=== PATIENT | male | born 1980 | race Caucasian/White ===

== ENCOUNTER → 2020-05-15 11:53 | Outpatient (BNVA) | payer MEDICARE, MEDICAID, SELFPAY | PROVIDERS: PCP Physician Assistant; Referring Provider Physician Assistant; Visit Provider Orthopaedic Surgery | DX: M22.2X1 Patellofemoral disorders, right knee (principal); M22.2X2 Patellofemoral disorders, left knee | CPT/HCPCS: 20610; 99213; 99214; J1040 ==

== ENCOUNTER → 2020-10-16 11:05 | Outpatient (BNVA) | payer MEDICARE, MEDICAID, SELFPAY | PROVIDERS: Visit Provider Orthopaedic Surgery | DX: M22.2X1 Patellofemoral disorders, right knee (principal); M22.2X2 Patellofemoral disorders, left knee | CPT/HCPCS: 20610; 99212; J1040 ==

== ENCOUNTER → 2021-02-05 11:06 | Outpatient (BNVA) | payer MEDICARE, MEDICAID, SELFPAY | PROVIDERS: PCP Physician Assistant; Visit Provider Orthopaedic Surgery | DX: M22.2X2 Patellofemoral disorders, left knee (principal); M22.2X1 Patellofemoral disorders, right knee | CPT/HCPCS: 20610; 99212; J1040 ==

== ENCOUNTER → 2021-03-26 08:31 | Outpatient (BNVA) | payer MEDICARE, MEDICAID, SELFPAY | PROVIDERS: Visit Provider Orthopaedic Surgery | DX: M17.0 Bilateral primary osteoarthritis of knee (principal); Z88.8 Allergy status to other drugs, medicaments and biological substances | CPT/HCPCS: 20610; 99212; J7318 ==

== ENCOUNTER → 2021-12-22 13:09 | Outpatient (BNVA) | payer MEDICARE, MEDICAID, SELFPAY | PROVIDERS: Visit Provider Physician Assistant | DX: M17.0 Bilateral primary osteoarthritis of knee (principal); M22.2X1 Patellofemoral disorders, right knee; M22.2X2 Patellofemoral disorders, left knee | CPT/HCPCS: 20610; 99212; J1040 ==

== ENCOUNTER → 2022-05-16 14:53 | Outpatient (BNVA) | payer MEDICARE, MEDICAID, SELFPAY | PROVIDERS: PCP Family Medicine; Visit Provider Physician Assistant | DX: M22.2X1 Patellofemoral disorders, right knee (principal); M22.2X2 Patellofemoral disorders, left knee | CPT/HCPCS: 20610; 99212; J1040 ==

== ENCOUNTER → 2022-06-29 14:04 | Outpatient (BNVA) | payer MEDICARE, MEDICAID, SELFPAY | PROVIDERS: PCP Family Medicine; Visit Provider Physician Assistant | DX: M25.561 Pain in right knee (principal); M25.562 Pain in left knee; M17.0 Bilateral primary osteoarthritis of knee | CPT/HCPCS: 20610; J7318 ==

== ENCOUNTER → 2022-08-17 09:24 | Outpatient (BNVA) | payer MEDICARE, MEDICAID, SELFPAY | PROVIDERS: PCP Family Medicine; Visit Provider Physician Assistant | DX: M17.0 Bilateral primary osteoarthritis of knee (principal) | CPT/HCPCS: 20610; 99212; J1040 ==

== ENCOUNTER → 2022-11-16 13:43 | Outpatient (BNVA) | payer MEDICARE, MEDICAID, SELFPAY | PROVIDERS: PCP Family Medicine; Visit Provider Physician Assistant | DX: M17.0 Bilateral primary osteoarthritis of knee (principal) | CPT/HCPCS: 20610; 99212; J1040 ==

== ENCOUNTER 2023-02-15 13:54 | Outpatient (AMB) | payer MEDICARE, MEDICAID, SELFPAY ==
--- NOTE | 2023-02-15 13:59 | A.OFFVIS_ITS ---
Intake Vital Signs 02/15/23 14:01 Height 6 ft Weight 360 lb BMI 48.8 Intake Visit Reasons: OV-B/L knee injection, last inj 11/16/22 Intake Note: Braxton is a 41 year old male who presents today for b/l knee injection, last inj 11/16/22. Patient reports last injection provided relief until until a few weeks ago. States he would like to repeat injections. Allergies acetaminophen [From TYLENOL] Allergy (Unknown, Verified 02/15/23 14:00) N/V codeine [CODEINE] Allergy (Unknown, Verified 02/15/23 14:00) NAUSEA VOMITING Codeine Phosphate Allergy (Unknown, Uncoded 02/15/23 14:00) onknown Diclofenac Allergy (Unknown, Uncoded 02/15/23 14:00) rash Codeine Sulfate Adverse Reaction (Unknown, Uncoded 02/15/23 14:00) GI upset HPI OV-B/L knee injection, last inj 11/16/22 HPI Details 42-year-old male who returns to the office today for a follow-up of bilateral knee pain. He had his last injection on 11/16/22 which provided him relief until a few weeks ago. he would like to repeat the injections. [facility] Social History Alcohol intake: never Current occupational status: unemployed Current occupation: Right Handed Review of Systems Const All systems reviewed & are unremarkable except as noted in HPI and below Physical Exam Vital Signs: BMI result Body Mass Index 48.8 Extrem Other: Left knee skin intact. No erythema or joint effusion. Full ROM with crepitus. Calf supple non tender. Right knee skin intact, no erythema or effusion. Full ROM with crepitus. Calf supple non tender, Office Procedures Joint Injection/Drain Joint Injection/Drain Primary Site: right knee Secondary Site: left knee Prep: site was prepped using aseptic technique, ethochloride spray was applied and injection warnings given Injected: 80 mg of, DepoMedrol, with 8 mL of, 1% plain lidocaine and in the joint Approach Used: anterolateral Procedure: The patient tolerated the procedure well and there was some relief with the local anesthesia Coding 21356 - Glenohumeral/Tronchanteric Bursa/Intraarticular Procedure code (CPT) selection complete Results Reviewed Results Reviewed: 02/15/23 14:01 Lidocaine HCl 2 % MPF [Xylocaine 2 % MPF] 5 ml .ROUTE .STK-MED ONE methylPREDNISolone acetate [DEPO-MedroL] 80 mg .ROUTE .STK-MED ONE Assessment & Plan Assessment & Plan (1) Primary osteoarthritis of knees, bilateral: Code(s): M17.0 - Bilateral primary osteoarthritis of knee Plan We discussed options today which include steroid injection. They did consent to move forward with the bilateral knee injection, which was tolerated well. I recommended rest, ice and elevation and OTC anti-inflammatories PRN for discomfort. If symptoms persist or worsens over the next 6-8 weeks, patient will contact the office, otherwise follow-up as needed. Patient Instructions: Scribed for Stas Roberts PA-C, by Pedro Luis Alvares medical physiologist, on 02/15/2023 at 1:45 PM EST. I, Stas Roberts PA-C, have personally reviewed and agree with the information entered by the scribe. Coding Level of Care Code Est Pt Level 3 (73459) Diagnoses Primary osteoarthritis of knees, bilateral M17.0 CPT Codes Coding - Joint 7: 93915 - Glenohumeral/Tronchanteric Bursa/Intraarticular ([id number])
[2023-02-15 14:01] VITALS: BMI 48.8
== END 2023-02-15 14:20 | disposition home or self-care (01) ==
PROVIDERS: Visit Provider Physician Assistant
DX: M17.0 Bilateral primary osteoarthritis of knee (principal)
CPT/HCPCS: 20610; 99213

== ENCOUNTER → 2023-02-15 13:54 | Outpatient (BNVA) | payer MEDICARE, MEDICAID, SELFPAY | PROVIDERS: Visit Provider Physician Assistant | DX: M17.0 Bilateral primary osteoarthritis of knee (principal) | CPT/HCPCS: 20610; 99212; J1040 ==

== ENCOUNTER 2023-05-18 13:54 | Outpatient (AMB) | payer MEDICARE, MEDICAID, SELFPAY ==
--- NOTE | 2023-05-18 14:01 | A.OFFVIS_ITS ---
Intake Vital Signs 05/18/23 14:02 Height 6 ft Weight 360 lb BMI 48.8 Intake Visit Reasons: OV-B/L knee injection-last injection 02/15/23 Intake Note: Braxton a 42 year old male presents today for a follow up of Allergies acetaminophen [From TYLENOL] Allergy (Unknown, Verified 02/15/23 14:00) N/V codeine [CODEINE] Allergy (Unknown, Verified 02/15/23 14:00) NAUSEA VOMITING Codeine Phosphate Allergy (Unknown, Uncoded 02/15/23 14:00) onknown Diclofenac Allergy (Unknown, Uncoded 02/15/23 14:00) rash Codeine Sulfate Adverse Reaction (Unknown, Uncoded 02/15/23 14:00) GI upset HPI OV-B/L knee injection-last injection 02/15/23 HPI Details 42-year-old male who returns to the [facility] today for bilateral knee injection. He had his last injection on 02/15/23. [facility] Social History Alcohol intake: never Current occupational status: unemployed Current occupation: Right Handed Review of Systems Const All systems reviewed & are unremarkable except as noted in HPI and below Physical Exam Vital Signs: BMI result Body Mass Index 48.8 Extrem Other: Left knee skin intact. No erythema or joint effusion. Full ROM with crepitus. Calf supple non tender. Right knee skin intact, no erythema or effusion. Full ROM with crepitus. Calf supple non tender, Office Procedures Joint Injection/Drain Joint Injection/Drain Primary Site: right knee Secondary Site: left knee Prep: site was prepped using aseptic technique, ethochloride spray was applied and injection warnings given Injected: 80 mg of, DepoMedrol, with 8 mL of, 1% plain lidocaine and in the joint Approach Used: anterolateral Procedure: The patient tolerated the procedure well and there was some relief with the local anesthesia Coding 80791 - Glenohumeral/Tronchanteric Bursa/Intraarticular Procedure code (CPT) selection complete Results Reviewed Results Reviewed: 05/18/23 13:59 Lidocaine HCl 2 % MPF [Xylocaine 2 % MPF] 5 ml .ROUTE .STK-MED ONE methylPREDNISolone acetate [DEPO-MedroL] 80 mg .ROUTE .STK-MED ONE Assessment & Plan Assessment & Plan (1) Primary osteoarthritis of knees, bilateral: Code(s): M17.0 - Bilateral primary osteoarthritis of knee Plan We discussed options today which include steroid injection. They did consent to move forward with the bilateral knee injection, which was tolerated well. I recommended rest, ice and elevation and OTC anti-inflammatories PRN for discomfort. If symptoms persist or worsens over the next 6-8 weeks, patient will contact the office, otherwise follow-up as needed. Patient Instructions: Scribed for Stas Roberts PA-C, by Pedro Luis Alvares medical coding technician, on 05/18/2023 at 1:45 PM EST. I, Stas Roberts PA-C, have personally reviewed and agree with the information entered by the scribe. Coding Level of Care Code Est Pt Level 3 (62340) Diagnoses Primary osteoarthritis of knees, bilateral M17.0 CPT Codes Coding - Joint 7: 58414 - Glenohumeral/Tronchanteric Bursa/Intraarticular ([id number])
[2023-05-18 14:02] VITALS: BMI 48.8
== END 2023-05-18 14:21 | disposition home or self-care (01) ==
PROVIDERS: PCP Family Medicine; Visit Provider Physician Assistant
DX: M17.0 Bilateral primary osteoarthritis of knee (principal)
CPT/HCPCS: 20610

== ENCOUNTER → 2023-05-18 13:54 | Outpatient (BNVA) | payer MEDICARE, OTHER, SELFPAY | PROVIDERS: PCP Family Medicine; Visit Provider Physician Assistant | DX: M17.0 Bilateral primary osteoarthritis of knee (principal) | CPT/HCPCS: 20610; J1040 ==

== ENCOUNTER 2023-08-21 14:48 | Outpatient (AMB) | payer OTHER, MEDICAID, SELFPAY ==
--- NOTE | 2023-08-21 14:49 | A.OFFVIS_ITS ---
Intake Vital Signs 08/21/23 14:53 Height 6 ft Weight 360 lb BMI 48.8 Intake Visit Reasons: OV- B/L knee Durolane injection Intake Note: Braxton a 42 year old male presents today for bilateral knee Durolane injections. Patient reports last cortisone injections on 05/18/23 helped until recently, stating the past 2 weeks his pain has been increasing. Allergies acetaminophen [From TYLENOL] Allergy (Unknown, Verified 08/21/23 14:54) N/V codeine [CODEINE] Allergy (Unknown, Verified 08/21/23 14:54) NAUSEA VOMITING Codeine Phosphate Allergy (Unknown, Uncoded 08/21/23 14:54) onknown Diclofenac Allergy (Unknown, Uncoded 08/21/23 14:54) rash Codeine Sulfate Adverse Reaction (Unknown, Uncoded 08/21/23 14:54) GI upset Medication List - Last Reconciled 08/21/23 by Stas Roberts PA-C cyclobenzaprine 10 mg PO TID PRN glatiramer mg subcut hydrocodone-acetaminophen 10-325 mg 1 - 2 tabs PO TID PRN lisinopril 10 mg PO DAILY meloxicam 15 mg PO DAILY 30 days HPI OV- B/L knee Durolane injection HPI Details 42-year-old male who returns to the [facility] today for bilateral knee Durolane injection. He had his last cortisone injections on 05/18/23 which provided him relief until recently. He currently states he has worsening pain in her bilateral knees for the past 2 weeks. [facility] Social History Alcohol intake: never Current occupational status: unemployed Current occupation: Right Handed Review of Systems Const All systems reviewed & are unremarkable except as noted in HPI and below Physical Exam Vital Signs: BMI result Body Mass Index 48.8 Extrem Other: Left knee skin intact. No erythema or joint effusion. Full ROM with crepitus. Calf supple non tender. Right knee skin intact, no erythema or effusion. Full ROM with crepitus. Calf supple non tender, Office Procedures Joint Injection/Drain Joint Injection/Drain Details: bilat durolane Primary Site: right knee Secondary Site: left knee Prep: site was prepped using aseptic technique, ethochloride spray was applied and injection warnings given Injected: 80 mg of, with 8 mL of, 1% plain lidocaine and in the joint Approach Used: anterolateral Procedure: The patient tolerated the procedure well and there was some relief with the local anesthesia Coding 67433 - Glenohumeral/Tronchanteric Bursa/Intraarticular Procedure code (CPT) selection complete Assessment & Plan Assessment & Plan (1) Primary osteoarthritis of knees, bilateral: Code(s): M17.0 - Bilateral primary osteoarthritis of knee Plan We discussed options today which include steroid and Durolane injection. They did consent to move forward with the bilateral knee durolane and steroid injection, which was tolerated well. I recommended rest, ice and elevation and OTC anti-inflammatories PRN for discomfort. If symptoms persist or worsens over the next 6-8 weeks, patient will contact the office, otherwise follow-up as needed. Patient Instructions: Scribed for Stas Roberts PA-C, by Pedro Luis Alvares medical grade shoemaker, on 08/21/2023 at 3:00 PM EST. I, Stas Roberts PA-C, have personally reviewed and agree with the information entered by the scribe. Coding Level of Care Code Est Pt Level 3 (43478) Diagnoses Primary osteoarthritis of knees, bilateral M17.0 CPT Codes Coding - Joint 7: 52001 - Glenohumeral/Tronchanteric Bursa/Intraarticular ([id number])
[2023-08-21 14:53] VITALS: BMI 48.8
== END 2023-08-21 15:09 | disposition home or self-care (01) ==
PROVIDERS: PCP Family Medicine; Visit Provider Physician Assistant
DX: M17.0 Bilateral primary osteoarthritis of knee (principal)
CPT/HCPCS: 20610

== ENCOUNTER → 2023-08-21 14:48 | Outpatient (BNVA) | payer OTHER, MEDICAID, SELFPAY | PROVIDERS: PCP Family Medicine; Visit Provider Physician Assistant | DX: M17.0 Bilateral primary osteoarthritis of knee (principal) | CPT/HCPCS: 20610; J1040; J7318 ==

== ENCOUNTER 2023-11-23 13:58 | Outpatient (AMB) | payer OTHER, MEDICAID, SELFPAY ==
--- NOTE | 2023-11-23 14:00 | MHC.OFFVIS ---
Intake Visit Reasons: INJ-OV- B/L knee cortisone inject. Intake Note: Braxton a 43 year old male presents today for a follow up of bilateral knee, last gel and coritsone injection on 08/21/23. Patient reports last injections helped until the past couple of weeks. He is requesting to repeat cortisone injections. Allergies acetaminophen [From TYLENOL] Allergy (Unknown, Verified 11/23/23 14:32) N/V codeine [CODEINE] Allergy (Unknown, Verified 11/23/23 14:32) NAUSEA VOMITING Codeine Phosphate Allergy (Unknown, Uncoded 11/23/23 14:32) onknown Diclofenac Allergy (Unknown, Uncoded 11/23/23 14:32) rash Codeine Sulfate Adverse Reaction (Unknown, Uncoded 11/23/23 14:32) GI upset HPI HPI INJ-OV- B/L knee cortisone inject.: Details: 43-year-old male who returns to the office today for bilateral knee cortisone injection. He had bilateral knee Durolane injection on 08/21/23. He would like to have a cortisone injection today. [facility] Social History Alcohol intake: never Current occupational status: unemployed Current occupation: Right Handed Review of Systems Const All systems reviewed & are unremarkable except as noted in HPI and below Physical Exam Extrem Other: Bilateral knee: Skin intact, no erythema or joint effusion. Tenderness along the medial and lateral joint line. Full ROM with crepitus. Negative Kim?s. No ligamentous laxity. NVI. Office Procedures Joint Injection/Drain Joint Injection/Drain Primary Site: right knee Secondary Site: left knee Prep: site was prepped using aseptic technique, ethochloride spray was applied and injection warnings given Injected: 80 mg of, DepoMedrol, with 8 mL of, 1% plain lidocaine and in the joint Approach Used: anterolateral Procedure: The patient tolerated the procedure well and there was some relief with the local anesthesia Coding 71739 - Glenohumeral/Tronchanteric Bursa/Intraarticular Procedure code (CPT) selection complete Assessment & Plan Assessment & Plan (1) Primary osteoarthritis of knees, bilateral: Code(s): M17.0 - Bilateral primary osteoarthritis of knee Category: Medical Plan We discussed options today which include steroid injection. They did consent to move forward with the bilateral knee injection, which was tolerated well. I recommended rest, ice and elevation and OTC anti-inflammatories PRN for discomfort. If symptoms persist or worsens over the next 6-8 weeks, patient will contact the office, otherwise follow-up as needed. Patient Instructions: Scribed for Stas Roberts PA-C, by Pedro Luis Alvares medical office technician, on 11/23/2023 at 1:45 PM EST. Stas Sandoval PA-C, have personally reviewed and agree with the information entered by the scribe. Coding Level of Care Code Est Pt Level 3 (32123) Diagnoses Primary osteoarthritis of knees, bilateral M17.0 CPT Codes Coding - Joint 7: 47987 - Glenohumeral/Tronchanteric Bursa/Intraarticular ([id number])
== END 2023-11-23 14:18 | disposition home or self-care (01) ==
PROVIDERS: PCP Family Medicine; Visit Provider Physician Assistant
DX: M17.0 Bilateral primary osteoarthritis of knee (principal)
CPT/HCPCS: 20610; 99213

== ENCOUNTER → 2023-11-23 13:58 | Outpatient (BNVA) | payer OTHER, SELFPAY | PROVIDERS: PCP Family Medicine; Visit Provider Physician Assistant | DX: M17.0 Bilateral primary osteoarthritis of knee (principal) | CPT/HCPCS: 20610; 99212; J1010 ==

== ENCOUNTER 2024-02-22 13:46 | Outpatient (AMB) | payer OTHER, SELFPAY ==
--- NOTE | 2024-02-22 13:51 | MHC.OFFVIS ---
Vital Signs 02/22/24 13:55 Height 6 ft Weight 360 lb BMI 48.8 Intake Visit Reasons: INJ-OV- B/L knee cortisone inject. Intake Note: Braxton a 43 year old male who presents today for a follow up of bilateral knee pain, last injection 11/23/23. Patient reports last injection provided him with some relief until recently, stating pain returned a couple weeks ago. He would like to repeat injections. Allergies acetaminophen [From TYLENOL] Allergy (Unknown, Verified 02/22/24 14:02) N/V codeine [CODEINE] Allergy (Unknown, Verified 02/22/24 14:02) NAUSEA VOMITING Codeine Phosphate Allergy (Unknown, Uncoded 02/22/24 14:02) onknown Diclofenac Allergy (Unknown, Uncoded 02/22/24 14:02) rash Codeine Sulfate Adverse Reaction (Unknown, Uncoded 02/22/24 14:02) GI upset HPI HPI INJ-OV- B/L knee cortisone inject.: Details: Braxton is a 43-year-old male who presents today for a follow-up of bilateral knee pain, last injection 11/23/23. He reports mild relief after his last injection but a couple weeks ago, he began to experience pain. He would like to have repeat injections. [facility] Social History Alcohol intake: never Current occupational status: unemployed Current occupation: Right Handed Review of Systems Const All systems reviewed & are unremarkable except as noted in HPI and below Physical Exam Vital Signs: BMI result Body Mass Index 48.8 Const General: cooperative, healthy appearing, comfortable and no acute distress Orientation/consciousness: patient oriented x3 Neck Neck: Yes normal visual inspection and Yes no JVD Chest Chest palpation & inspection: normal inspection of the chest Resp Effort & Inspection: normal respiratory effort Auscultation: clear to auscultation bilaterally, crackles (no), rales (no), rhonchi (no) and wheezes (no) Cardio Jugular venous distension: no JVD Rate: regular rate Rhythm: regular rhythm Heart sounds: S1 normal heart sound present, S2 normal heart sound present, Murmur heart sound present (no) and Rub heart sound present (no) Neuro General: patient oriented x3 Extrem Other: Bilateral knee: Skin intact, no erythema or joint effusion. Tenderness along the medial and lateral joint line. Full ROM with crepitus. Negative Kim?s. No ligamentous laxity. NVI. General: Yes normal to inspection, Yes no pedal edema and Yes no calf tenderness Psych Appearance: grossly normal Mental Status: mental status grossly normal Speech and movement: Normal speech and movement present Office Procedures Joint Injection/Drain Joint Injection/Drain Primary Site: right knee Secondary Site: left knee Prep: site was prepped using aseptic technique, ethochloride spray was applied and injection warnings given Injected: 80 mg of, DepoMedrol, with 8 mL of, 1% plain lidocaine and in the joint Approach Used: anterolateral Procedure: The patient tolerated the procedure well and there was some relief with the local anesthesia Coding 00780 - Glenohumeral/Tronchanteric Bursa/Intraarticular Procedure code (CPT) selection complete Assessment & Plan Assessment & Plan (1) Primary osteoarthritis of knees, bilateral: Code(s): M17.0 - Bilateral primary osteoarthritis of knee Category: Medical Plan We discussed options today, which include cortisone injection. The patient did consent to move forward with the bilateral knee cortisone injection, which was tolerated well. I recommended rest, ice, and elevation and OTC anti-inflammatories as needed for discomfort. If symptoms persist over the next 6-8 weeks, they will contact the office, otherwise as needed. Patient Instructions: Scribed for Stas Roberts PA-C, by Kandy Zheng clinical laboratory medical director, on 02/22/2024 at 1:30 PM EST. I, Stas Roberts PA-C, have personally reviewed and agree with the information entered by the scribe. Coding Level of Care Code Est Pt Level 3 (01514) Diagnoses Primary osteoarthritis of knees, bilateral M17.0 CPT Codes Coding - Joint 7: 17757 - Glenohumeral/Tronchanteric Bursa/Intraarticular ([id number])
[2024-02-22 13:55] VITALS: BMI 48.8
== END 2024-02-22 15:25 | disposition home or self-care (01) ==
PROVIDERS: PCP Family Medicine; Visit Provider Physician Assistant
DX: M17.0 Bilateral primary osteoarthritis of knee (principal)
CPT/HCPCS: 20610; 99213

== ENCOUNTER → 2024-02-22 13:46 | Outpatient (BNVA) | payer OTHER, SELFPAY | PROVIDERS: PCP Family Medicine; Visit Provider Physician Assistant | DX: M17.0 Bilateral primary osteoarthritis of knee (principal) | CPT/HCPCS: 20610; 99212; J1010 ==

== ENCOUNTER 2024-05-30 13:41 | Outpatient (AMB) | payer OTHER, SELFPAY ==
[2024-05-30 13:52] VITALS: BMI 48.8
--- NOTE | 2024-05-30 13:52 | A.OFFVIS_ITS ---
Vital Signs 05/30/24 13:52 Height 6 ft Weight 360 lb BMI 48.8 Intake Visit Reasons: Inj- B/L knee cortisone inject last inj-02/22/24 Intake Note: Braxton a 43 year old male who presents today for bilateral knee Durolane/cortisone injection. Allergies acetaminophen [From TYLENOL] Allergy (Unknown, Verified 05/30/24 13:52) N/V codeine [CODEINE] Allergy (Unknown, Verified 05/30/24 13:52) NAUSEA VOMITING Codeine Phosphate Allergy (Unknown, Uncoded 05/30/24 13:52) onknown Diclofenac Allergy (Unknown, Uncoded 05/30/24 13:52) rash Codeine Sulfate Adverse Reaction (Unknown, Uncoded 05/30/24 13:52) GI upset HPI HPI Inj- B/L knee cortisone inject last inj-02/22/24: Details: 43-year-old male who returns to the office today for a follow-up of bilateral knee pain. He had his last injection on 02/22/24. He would like to repeat the injection. [facility] Social History Alcohol intake: never Current occupational status: unemployed Current occupation: Right Handed Review of Systems Const All systems reviewed & are unremarkable except as noted in HPI and below Physical Exam Vital Signs: BMI result Body Mass Index 48.8 Const General: cooperative, healthy appearing, comfortable and no acute distress Orientation/consciousness: patient oriented x3 Neck Neck: Yes normal visual inspection and Yes no JVD Chest Chest palpation & inspection: normal inspection of the chest Resp Effort & Inspection: normal respiratory effort Auscultation: clear to auscultation bilaterally, crackles (no), rales (no), rhonchi (no) and wheezes (no) Cardio Jugular venous distension: no JVD Rate: regular rate Rhythm: regular rhythm Heart sounds: S1 normal heart sound present, S2 normal heart sound present, Murmur heart sound present (no) and Rub heart sound present (no) Neuro General: patient oriented x3 Extrem Other: Bilateral knee: Skin intact, no erythema or joint effusion. Tenderness along the medial and lateral joint line. Full ROM with crepitus. Negative Kim?s. No ligamentous laxity. NVI. General: Yes normal to inspection, Yes no pedal edema and Yes no calf tenderness Psych Appearance: grossly normal Mental Status: mental status grossly normal Speech and movement: Normal speech and movement present Office Procedures AMB Joint Injection/Aspiration Joint Injection/Aspiration Details: patient was injected with corticosteroid and durolane bilat knee Primary Site: right knee Secondary Site: left knee Prep: site was prepped using aseptic technique, ethochloride spray was applied and injection warnings given Injected: 80 mg of, DepoMedrol, with 8 mL of, 1% plain lidocaine and in the joint Approach Used: anterolateral Procedure: The patient tolerated the procedure well and there was some relief with the local anesthesia Coding 80010 - Glenohumeral/Tronchanteric Bursa/Intraarticular Procedure code (CPT) selection complete Assessment & Plan Assessment & Plan (1) Primary osteoarthritis of knees, bilateral: Code(s): M17.0 - Bilateral primary osteoarthritis of knee Category: Medical Plan We discussed options today, which include steroid injection. The patient did consent to move forward with the bilateral knee injection ( steroid w/ durolane ), which was tolerated well. I recommended rest, ice, and elevation and OTC anti-inflammatories as needed for discomfort. If symptoms persist or worsens over the next 6-8 weeks, patient will contact the office, otherwise follow-up as needed. Patient Instructions: Scribed for Stas Roberts PA-C, by Pedro Luis Alvares electromedical service engineer, on 05/30/2024 at 1:45 PM EST.? I, Stas Roberts PA-C, have personally reviewed and agree with the information entered by the scribe. Coding Level of Care Code Est Pt Level 3 (76126) Complex EM visit Add On G2211 Diagnoses Primary osteoarthritis of knees, bilateral M17.0 CPT Codes Coding - Joint 7: 87017 - Glenohumeral/Tronchanteric Bursa/Intraarticular ([id number])
== END 2024-05-30 14:10 | disposition home or self-care (01) ==
LOC: HO.HOS 13:41
PROVIDERS: PCP Family Medicine; Visit Provider Physician Assistant
DX: M17.0 Bilateral primary osteoarthritis of knee (principal)
CPT/HCPCS: 20610; 99213

== ENCOUNTER → 2024-05-30 13:41 | Outpatient (BNVA) | payer OTHER, SELFPAY | PROVIDERS: PCP Family Medicine; Visit Provider Physician Assistant | DX: M17.0 Bilateral primary osteoarthritis of knee (principal) | CPT/HCPCS: 20610; 99212; J1010; J2003; J7318 ==

== ENCOUNTER 2024-09-02 13:12 | Outpatient (AMB) | payer OTHER, SELFPAY ==
[2024-09-02 13:21] VITALS: BMI 48.8
--- NOTE | 2024-09-02 13:21 | A.OFFVIS_ITS ---
Vital Signs 09/02/24 13:21 Height 6 ft Weight 360 lb BMI 48.8 Intake Visit Reasons: Inj- B/L knee cortisone inject last inj-05/30/24 Intake Note: Braxton is a 43 year old male who presents today for a follow up of bilateral knee injections, last Durolane and cortisone injection on 05/30/24. Patient reports last injections provided him with some relief. He is requesting to repeat bilateral cortisone injections today. Allergies acetaminophen [From TYLENOL] Allergy (Unknown, Verified 09/02/24 13:30) N/V codeine [CODEINE] Allergy (Unknown, Verified 09/02/24 13:30) NAUSEA VOMITING Codeine Phosphate Allergy (Unknown, Uncoded 09/02/24 13:30) onknown Diclofenac Allergy (Unknown, Uncoded 09/02/24 13:30) rash Codeine Sulfate Adverse Reaction (Unknown, Uncoded 09/02/24 13:30) GI upset Medication List - Last Reconciled 09/02/24 by Stas Roberts PA-C cyclobenzaprine 10 mg PO TID PRN glatiramer mg subcut hydrocodone-acetaminophen 10-325 mg 1 - 2 tabs PO TID PRN lisinopril 10 mg PO DAILY meloxicam 15 mg PO DAILY 30 days HPI HPI Inj- B/L knee cortisone inject last inj-05/30/24: Details: 43-year-old gentleman returns to the office today for bilateral knee pain. He received his last injection on May 30 with significant relief up until recently. Difficulty with daily activities such as prolonged walking sitting and standing. [facility] Social History Alcohol intake: never Current occupational status: unemployed Current occupation: Right Handed Review of Systems Const All systems reviewed & are unremarkable except as noted in HPI and below Physical Exam Vital Signs: BMI result Body Mass Index 48.8 Const General: cooperative, healthy appearing, comfortable and no acute distress Orientation/consciousness: patient oriented x3 Neck Neck: Yes normal visual inspection and Yes no JVD Chest Chest palpation & inspection: normal inspection of the chest Resp Effort & Inspection: normal respiratory effort Auscultation: clear to auscultation bilaterally, crackles (no), rales (no), rhonchi (no) and wheezes (no) Cardio Jugular venous distension: no JVD Rate: regular rate Rhythm: regular rhythm Heart sounds: S1 normal heart sound present, S2 normal heart sound present, Murmur heart sound present (no) and Rub heart sound present (no) Neuro General: patient oriented x3 Extrem Other: Bilateral knee: Skin intact, no erythema or joint effusion. Tenderness along the medial and lateral joint line. Full ROM with crepitus. Negative Kim?s. No ligamentous laxity. NVI. General: Yes normal to inspection, Yes no pedal edema and Yes no calf tenderness Psych Appearance: grossly normal Mental Status: mental status grossly normal Speech and movement: Normal speech and movement present Office Procedures AMB Joint Injection/Aspiration Joint Injection/Aspiration Primary Site: right knee Secondary Site: left knee Prep: site was prepped using aseptic technique, ethochloride spray was applied and injection warnings given Injected: 80 mg of, DepoMedrol, with 8 mL of, 1% plain lidocaine and in the joint Approach Used: anterolateral Procedure: The patient tolerated the procedure well and there was some relief with the local anesthesia Coding 08255 - Glenohumeral/Tronchanteric Bursa/Intraarticular Procedure code (CPT) selection complete Assessment & Plan Assessment & Plan (1) Primary osteoarthritis of knees, bilateral: Code(s): M17.0 - Bilateral primary osteoarthritis of knee Category: Medical Plan We discussed options today, which include steroid injection. The patient did consent to move forward with the bilateral knee steroid injection , which was tolerated well. I recommended rest, ice, and elevation and OTC anti- inflammatories as needed for discomfort. If symptoms persist or worsens over the next 6-8 weeks, patient will contact the office, otherwise follow-up as needed. Coding Level of Care Code Est Pt Level 3 (06169) Complex EM visit Add On G2211 Diagnoses Primary osteoarthritis of knees, bilateral M17.0 CPT Codes Coding - Joint 7: 58004 - Glenohumeral/Tronchanteric Bursa/Intraarticular ([id number])
--- OUTSIDE RECORDS SUMMARY | 2024-09-02 14:29 | XMS_ITS | Clinical Summary ---
Author Organization [facility] Address [address] [place] [address] Care Team Providers Care Lapel Padder Blindstitch Name Role Phone UlloaSuzanne Primary Care Provider [phone] Allergies No known active allergies Medications lisinopriL (PRINIVIL,ZEST RIL) 10 mg tablet 07/16/20 20 Active cyclobenzaprin e (FLEXERIL) 10 mg tablet Take 10 mg by mouth 3 times a day as needed. 06/24/20 20 Active HYDROcodone-ac etaminophen (NORCO) 5-325 mg tablet 07/30/20 20 Active kbmxvew-asrf-d xljy-xovu-yazo yl 100 mg-150 mg- 50 mg-150 mg capsule Take by mouth. Active biotin 1 mg tablet Take 1,000 mcg by mouth once a day. Active ascorbic acid, vitamin C, (VITAMIN C) 250 mg tablet Take 250 mg by mouth daily. Active meloxicam (MOBIC) 15 mg tablet Take 15 mg by mouth once a day. 04/30/20 21 Active vitamin B-12 1,000 mcg tablet TAKE 1 TABLET BY MOUTH EVERY DAY 90 tablet 1 12/10/19 24 Active cholecalcifero l, vitamin D3, (Vitamin D3) 5,000 unit tabletIndicati ons:Multiple sclerosis, relapsing-yared tting (HCC),Vitamin D deficiency Take 1 tablet (5,000 Units total) by mouth daily. 30 tablet 11 01/09/20 24 025 Active magnesium oxide (MAG-OX) 400 mg (241.3 mg mag) tablet Take 1 tablet (241.3 mg of elemental magnesium total) by mouth every night. 60 tablet 3 08/14/19 25 Active methylphenidat e HCl (RITALIN) 20 mg tabletIndicati ons:Multiple sclerosis, relapsing-yared tting (HCC),Other fatigue Take 1 tablet (20 mg total) by mouth 2 times a day. 60 tablet 08/14/19 25 Active clonazePAM (KlonoPIN) 0.5 mg tablet Take 1 tablet (0.5 mg total) by mouth 2 times a day. BEFORE THE MRI EXAM 2 tablet 12/11/19 24 025 Discontinued Active Problems Problem Noted Date Diagnosed Date Other fatigue 06/08/2021 Numbness and tingling of both legs 11/16/2020 Impaired functional mobility, balance, gait, and endurance 11/16/2020 Muscle spasticity 11/16/2020 Multiple sclerosis, relapsing-remitting 07/21/20 Gait difficulty 07/21/2020 Other chronic pain 07/21/2020 Encounters Date Type Department Care Team Description 08/14/2024 1:00 PM EST Office Visit [facility] [address] [place] [phone] Rotary Operator: Lizzie Muller MD Multiple sclerosis, relapsing-remitting (HCC) (Primary Dx); High risk medication use; Other fatigue; Muscle spasticity 08/13/2024 Telephone [facility] [address] [place] [address] [phone] Rotary Operator: Berny Arroyo LPN Lack Of Clin Documentation-PAC Retail Pharm Denial 07/18/2024 Refill [facility] [address] [place] [address] [phone] Rotary Operator: Berny Arroyo LPN Multiple sclerosis, relapsing-remitting (HCC); Other fatigue 06/25/2024 Refill [facility] [address] [place] [address] [phone] Rotary Operator: April Mello LPN 06/24/2024 Refill [facility] [address] [place] [phone] Rotary Operator: Berny Arroyo LPN Multiple sclerosis, relapsing-remitting (HCC); Other fatigue from Last 3 Months Social History Tobacco Use Types Packs/Day Years Used Date Smoking Tobacco: Never Smokeless Tobacco: Never Sex and Gender Information Value Date Recorded Sex Assigned at Male 11/30/2021 11:08 AM EDT Legal Sex Male 2:05 PM EST Gender Identity Male 11/30/2021 11:08 AM EDT Sexual Orientation Straight 11/30/2021 11 :08 AM EDT Last Filed Vital Signs Vital Sign Reading Time Taken Comments Blood Pressure 127/86 08/14/2024 2:00 PM EST Pulse 109 08/14/2024 2:00 PM EST Temperature 36.9 ??C (98.4 ??F) 03/15/2024 9:10 AM ED T Respiratory Rate 16 09/15/2023 1:18 PM EST Oxygen Saturation 94% 03/15/2024 9:10 AM EDT Inhaled Oxygen Concentration - - Weight 162.1 kg (357 lb 5.9 oz) 03/15/2024 9:10 AM EDT Height - - Body Mass Index - - Plan of Treatment Upcoming Encounters Date Type Department Care Team (Late st Contact Info) Description 09/20/2024 9:00 AM EST Infusion [facility] [address] [place] [phone] 02/11/2025 3:00 PM EDT Office Visit [facility] [address] [place] [phone] Rotary Operator: Alessandra Eli Health Maintenance Due Date Last Done Comments Varicella Vaccines (1 of 2 - 13+ 2-dose series) 10/24/1995 Hepatitis B Vaccines (1 of 3 - 19+ 3-dose series) 2001 COVID-19 Vaccine (2023-2 5 season) 2024 Influenza Vaccine (#1) 2024 Alcohol/Substance Use Screening 07/31/2024 Depression Screening and Follow-Up 07/31/2024 Social Drivers of Health Annual Screening 07/31/2024 DTaP,Tdap,and Td Vaccines (4 - Td or Tdap) 03/03/2030 03/03/2020, 08/01/2019, 04/15/2014 RSV Vaccine (60+ years old and patients) (1 - 1-dose 75+ series) 2057 HIV Screening Completed 07/21/2020 Hepatitis C Screening Completed 07/21/2020 Pneumococcal Vaccine: Pediatric (0-5 Years) and At-Risk Patients (6-64 Years) Aged Out No longer eligible based on patient's age to complete this topic Procedures * Due to [place] law, this organization might not be sharing negative HIV tests. Procedure Name Priority Date/Time Associated Diagnosis Comments CBC AUTO DIFFERENTIAL Routine 08/14/2024 2:31 PM EST Multiple sclerosis, relapsing-remittin g (HCC) High risk medication use COMPREHENSIVE METABOLIC PANEL Routine 08/14/2024 2:31 PM EST Multiple sclerosis, relapsing-remittin g (HCC) High risk medication use IMMUNOGLOBULINS PANEL (IGG, IGA, IGM) Routine 08/14/2024 2:31 PM EST Multiple sclerosis, relapsing-remittin g (HCC) High risk medication use NEUROFILAMENT LIGHT [id number] Routine 08/14/2024 2:31 PM EST Multiple sclerosis, relapsing-remittin g (HCC) High risk medication use HEPATITIS PANEL, ACUTE Routine 3:57 PM EST Multiple sclerosis (CMS/HCC) (HCC) from Last 3 Months or Most Recently Relevant to Health Maintenance Results * Due to [place] law, this organization might not be sharing negative HIV tests. * Neurofilament Light Chain, Plasma (08/14/2024 2:31 PM EST) Neurofilament Light Chain, Plasma 4.1 <=17.3 pg/mL 08/19/2024 9:34 AM EST [facility] Comment: ADDITIONAL INFORMATION The testing method is a digital immunoassay for the quantitative determination of NfL in plasma manufactured by [employer] and performed on the Remedify HD-X analyzer. Values obtained with different methods may be different and cannot be used interchangeably. This test was developed and its performance characteristics determined by [facility] in a manner consistent with CLIA requirements. This test has not been cleared or approved by the U.S. Food and Drug Administration. Test Performed by: [facility] [address] [phone] Anesthesiologists' Assistant: Surinder Shannon Ph.D.; CLIA# [id number] Blood Structure of peripheral vein / Unknown Venipuncture / Unknown 08/14/2024 2:31 PM EST 08/14/2024 2:43 PM EST Mary Tejada MD LAB BLOOD ORDERABLES Final Re sult [facility] [address] [phone], * (ABNORMAL) CBC Auto Differential (08/14/2024 2:31 PM EST) WBC 9.4 3.8 - 10.8 10*3/uL 08/14/2024 2:52 PM EST [facility] RBC 4.87 4.20 - 5.80 10*6/uL 08/14/2024 2:52 PM EST [facility] Hemoglobin 14.5 13.2 - 17.1 g/dL 08/14/2024 2:52 PM EST [facility] Hematocrit 43.7 38.5 - 50.0 % 08/14/2024 2:52 PM EST [facility] MCV 89.7 80.0 - 100.0 fL 08/14/2024 2:52 PM EST [facility] MCH 29.8 27.0 - 33.0 pg 08/14/2024 2:52 PM EST [facility] MCHC 33.2 32.0 - 36.0 g/dL 08/14/2024 2:52 PM EST [facility] RDW 12.9 11.0 - 15.0 % 08/14/2024 2:52 PM EST [facility] Platelets 292 140 - 400 10*3/uL 08/14/2024 2:52 PM EST [facility] MPV 10.1 7.5 - 12.5 fL 08/14/2024 2:52 PM EST [facility] Neutrophil % 72.3 % 08/14/2024 2:52 PM EST [facility] Immature Grans % 0.6 0.0 - 0.9 % 08/14/2024 2:52 PM EST [facility] Lymphocyte % 15.7 % 08/14/2024 2:52 PM EST [facility] Monocyte % 9.9 % 08/14/2024 2:52 PM EST [facility] Eosinophil % 0.9 % 08/14/2024 2:52 PM EST [facility] Basophil % 0.6 % 08/14/2024 2:52 PM EST [facility] Neutrophil # 6.75 1.50 - 7.80 10*3/uL 08/14/2024 2:52 PM EST [facility] Immature Grans # 0.06(H) <=0.03 10*3/uL 08/14/2024 2:52 PM EST [facility] Lymphocyte # 1.50 0.85 - 3.90 10*3/uL 08/14/2024 2:52 PM EST [facility] Monocyte # 0.90 0.20 - 0.95 10*3/uL 08/14/2024 2:52 PM EST [facility] Eosinophil # 0.10 0.02 - 0.50 10*3/uL 08/14/2024 2:52 PM EST [facility] Basophil # 0.10 0.00 - 0.20 10*3/uL 08/14/2024 2:52 PM EST [facility] nRBC % 0.0 /100 WBCs 08/14/2024 2:52 PM EST [facility] nRBC # <0.01 <0.01 10*3/uL 08/14/2024 2:52 PM EST [facility] Blood Structure of peripheral vein / Unknown Venipuncture / Unknown 08/14/2024 2:31 PM EST 08/14/2024 2:43 PM EST Mary Tejada MD LAB BLOOD ORDERABLES Final Re sult Performing Organization Address City/[facility]/ZIP Co de Phone Number [facility] [address] [place] [address], * (ABNORMAL) Immunoglobulins Panel (IgG, IgA, IgM) (08/14/2024 2:31 PM EST) Immunoglobulin A 225 47 - 310 mg/dL 08/14/2024 9:18 PM EST [facility] IgG, Serum 746 600 - 1640 mg/dL 08/14/2024 9:18 PM EST [facility] Immunoglobulin M 41(L) 50 - 300 mg/dL 08/14/2024 9:18 PM EST [facility] Blood Structure of peripheral vein / Unknown Venipuncture / Unknown 08/14/2024 2:31 PM EST 08/14/2024 2:43 PM EST Narrative [facility] - 08/14/2024 9:18 PM EST [facility] Received Date:[id number] us Mary Tejada MD LAB BLOOD ORDERABLES Final Re sult [facility] [address] [facility] [address], [place] [address], [facility] [address] [facility] [address], [place] [address], [place] [phone] * (ABNORMAL) Comprehensive Metabolic Panel (08/14/2024 2:31 PM EST) NA 139 135 - 145 mmol/L 08/14/2024 3:18 PM EST [facility] K 4.5 3.5 - 5.3 mmol/L 08/14/2024 3:18 PM EST [facility] Cl 100 98 - 107 mmol/L 08/14/2024 3:18 PM EST [facility] CO2 28 22 - 32 mmol/L 08/14/2024 3:18 PM EST [facility] Anion Gap 11 5 - 15 08/14/2024 3:18 PM EST [facility] Glucose 94 65 - 99 mg/dL 08/14/2024 3:18 PM EST [facility] Creatinine 0.60 0.60 - 1.30 mg/dL 08/14/2024 3:18 PM EST [facility] Calcium 9.3 8.6 - 10.5 mg/dL 08/14/2024 3:18 PM EST [facility] Total Protein 7.0 6.0 - 8.0 g/dL 08/14/2024 3:18 PM EST [facility] Albumin 4.1 3.5 - 5.2 g/dL 08/14/2024 3:18 PM EST [facility] Bilirubin, Total 0.3 0.2 - 1.2 mg/dL 08/14/2024 3:18 PM EST [facility] Alkaline Phosphatase 81 35 - 129 U/L 08/14/2024 3:18 PM EST [facility] AST 23 10 - 40 U/L 08/14/2024 3:18 PM EST [facility] ALT 24 10 - 40 U/L 08/14/2024 3:18 PM EST [facility] BUN 11 7 - 23 mg/dL 08/14/2024 3:18 PM EST [facility] eGFR >90 >=60 mL/min/1. 73m2 08/14/2024 3:18 PM EST [facility] Comment:The estimated glomer ular filtration rate (eGFR) is calculated using a new formula developed by the NKF-ASN task force to eliminate race-based correction factors. The new formula uses serum/plasma creatinine, age, and gender to determine eGFR. A value below 60mls/min might indicate kidney disease and will be flagged. For additional information, see Kapadia et al, Am J Kidney Dis. 2021;79(2):268- 288, A Unifying Approach for GFR estimation: Recommendations of the NKF-ASN Task Force on Reassessing the Inclusion of Race in Diagnosing Kidney Disease . Globulin, Total 2.9 2.1 - 4.2 g/dL 08/14/2024 3:18 PM EST [facility] A/G Ratio 1.4(L) 1.5 - 3.0 08/14/2024 3:18 PM EST [facility] Blood Structure of peripheral vein / Unknown Venipuncture / Unknown 08/14/2024 2:31 PM EST 08/14/2024 2:43 PM EST Mary Tejada MD LAB BLOOD ORDERABLES Final Re sult [facility] [address] [place] [address], * Hepatitis Panel, Acute (07/21/2020 3:57 PM EST) Hepatitis A IgM NON-REACT EDMOND NON-REACT EDMOND 07/22/2020 1:09 AM EST [facility] Hepatitis B Surface Antigen NON-REACT EDMOND NON-REACT EDMOND 07/22/2020 1:09 AM EST [facility] Hepatitis B Core Antibody NON-REACT EDMOND NON-REACT EDMOND 07/22/2020 1:09 AM EST [facility] Hepatitis C Antibody NON-REACT EDMOND NON-REACT EDMOND 07/22/2020 1:09 AM EST [facility] Signal To Cut-Off 0.08 <1.00 07/22/2020 1:09 AM EST [facility] Comment: HCV antibody was non-reactive. There is no laboratory evidence of HCV infection. In most cases, no further action is required. However, if recent HCV exposure is suspected, a test for HCV RNA (test code 44767) is suggested. For additional information please refer to http://Nextcar.com.Cemmerce/faq/NVZ75q0 (This link is being provided for informational/ educational purposes only.) For additional information, please refer to http://Nextcar.com.Cemmerce/faq/XSJ211 (This link is being provided for informational/ educational purposes only.) Blood Structure of peripheral vein / Unknown Venipuncture / Unknown 07/21/2020 3:57 PM EST 07/21/2020 4:01 PM EST Narrative [facility] 07/22/2020 1:09 AM EST [facility] Received Date: Mary Tejada MD LAB BLOOD ORDERABLES Final Re sult [facility] [address] [facility] [address] [facility], [place] [address], [facility] [address] [facility] [address] [facility], [place] [address], from Last 3 Months or Most Recently Relevant to Health Maintenance Insurance [facility] Care Teams Lapel Padder Blindstitch Relationship Specialty Start Date End Date Suzanne Ulloa [address] [place] [phone] PCP - General Family Medicine 11/02/20
--- OUTSIDE RECORDS SUMMARY | 2024-09-02 14:29 | XMS_ITS | Encounter Summary ---
Author Organization [facility] Address [address] [place] [address] Care Team Providers Care Commercial Stripper Name Role Phone Suzanne Ulloa Panfilo Primary Care Provider [phone] Encounter Details Date Type Department Care Team (Late st Contact Info) Description 09/05/2022 Orders Only [facility] [address] [place] [phone] Provider, MD Nasrin [address] [place], [place] [phone] Social History Tobacco Use Types Packs/Day Years Used Date Smoking Tobacco: Never Smokeless Tobacco: Never Sex and Gender Information Value Date Recorded Sex Assigned at Male 11/30/2021 11:08 AM EDT Legal Sex Male 2:05 PM EST Gender Identity Male 11/30/2021 11:08 AM EDT Sexual Orientation Straight 11/30/2021 11 :08 AM EDT documented as of this encounter Plan of Treatment Upcoming Encounters Date Type Department Care Team (Late st Contact Info) Description 09/20/2024 9:00 AM EST Infusion [facility] [address] [place] [phone] 02/11/2025 3:00 PM EDT Office Visit [facility] [address] [place] [phone] Stereoplotter Operator: Alessandra Eli documented as of this encounter Procedures * Due to [place] state law, this organization might not be sharing negative HIV tests. Procedure Name Priority Date/Time Associated Diagnosis Comments AMB EXTERNAL MRI BRAIN, OUTS JOHN RESULT Routine 09/05/2022 AMB EXTERNAL MRI C-SPINE, OU TSIDE RESULT Routine 09/05/2022 documented in this encounter Results * Due to [place] state law, this organization might not be sharing negative HIV tests. * MRI Brain, Outside Result (09/05/2022) Anatomical Region Laterality Modality Other us Unknown Provider MD MANRIQUEZ EXTERNAL RESULT PROCEDUR ES Final Result * MRI C-Spine, Outside Result (09/05/2022) Anatomical Region Laterality Modality Other us Unknown Provider MD MANRIQUEZ EXTERNAL RESULT PROCEDUR ES Final Result documented in this encounter Visit Diagnoses Not on filedocumented in this encounter Care Teams Commercial Stripper Relationship Specialty Start Date End Date Suzanne Ulloa [address] [place] [phone] PCP - General Family Medicine 11/02/20 documented as of this encounter
--- OUTSIDE RECORDS SUMMARY | 2024-09-02 14:29 | XMS_ITS | Encounter Summary ---
Author Organization [facility] Address [address] [place] [address] Care Team Providers Care Menhaden Vessel Pilot Name Role Phone Suzanne Ulloa Primary Care Provider [phone] Reason for Referral * Medication Prior Authorization - Closed Specialty Diagnoses / Procedures Referred By Jez nunn Referred To Contact Diagnoses Multiple sclerosis, relapsing-remitting (HCC) Other fatigue Darling Tucker MD [address] [place] [address] Phone: tel: fax: Referral ID Status Reason Start Date Expiration Date Visits Re quested Visits Authorized [id number] Closed 6 6 Reason for Visit * Consultation (Routine) - Authorized Specialty Diagnoses / Procedures Referred By Jez nunn Referred To Contact Neurology Diagnoses Multiple sclerosis, relapsing-remitting (HCC) Procedures FOLLOW UP MS Suzanne Ulloa [address] [place] [address] Phone: tel:[phone] fax: Mary Tejada MD [address] [place] [address] Phone: tel: fax: Referral ID Status Reason Start Date Expiration Date V isits Requested Visits Authorized [id number] Authorized 02/06/2024 08/07/2025 6 6 Encounter Details Date Type Department Care Team (Late st Contact Info) Description 08/14/2024 1:00 PM EST Office Visit [facility] [address] [place] [address] Alumnae Secretary: Darling Muller MD [address] [place] [phone] Multiple sclerosis, relapsing-remitting (HCC) (Primary Dx); High risk medication use; Other fatigue; Muscle spasticity Social History Tobacco Use Types Packs/Day Years Used Date Smoking Tobacco: Never Smokeless Tobacco: Never Sex and Gender Information Value Date Recorded Sex Assigned at Male 11/30/2021 11:08 AM EDT Legal Sex Male 2:05 PM EST Gender Identity Male 11/30/2021 11:08 AM EDT Sexual Orientation Straight 11/30/2021 11 :08 AM EDT documented as of this encounter Last Filed Vital Signs Vital Sign Reading Time Taken Comments Blood Pressure 127/86 08/14/2024 2:00 PM EST Pulse 109 08/14/2024 2:00 PM EST Temperature - - Respiratory Rate - - Oxygen Saturation - - Inhaled Oxygen Concentration - - Weight - - Height - - Body Mass Index - - documented in this encounter Patient Instructions * Patient Instructions* Darling Tucker MD - 08/14/2024 2:01 PM EST Plan for the following: -Try magnesium oxide or magnesium glycinate 400 mg each night -Continue stretching and yoga exercises -MRIs in the Spring -Bloodwork before next visit - we will place orders today documented in this encounter Progress Notes * Mary Tejada MD - 08/14/2024 4:56 PM EST I have reviewed the patient's medical history, the findings on physical exam, and the diagnosis andtreatment plan. Case was discussed with the resident/fellow at the time of the patient visit and I personally was integrally involved in the medical decision making for the patient's treatment, ongoing care and follow-up as documented in the resident/fellow's note. * Darling Tucker MD - 08/14/2024 1:00 PM EST [facility] Date of Visit: 08/14/24 Chief Complaint: Braxton Pierce is a 43 y.o. right hand dominant man seen today for follow-up evaluation of multiple sclerosis OPTIMUM enrolled: Not assessed yet Clinical trial enrollment: none Clinical Summary Diagnosis: Relapsing-Remitting Multiple Sclerosis Diagnosis code: 1 Disease Activity in the Prior Year: No, Not Active Date of Symptom Onset: 2008 Date of Diagnosis: 2008 Clinical Flare History: Symptoms Date (MM/YYYY) Comments (treatments, duration) Bilateral legs numbness 2008 - Worsening lower extremity numbness and weakness - cognitive deficit 04/2021 IV Solu-Medrol Treatment History: Medication Start date Stop date Notes (dosing, adherence, efficacy) Beta-INF-1b (Betaseron) 2008 2010 - Glatiramer Acetate 2010 2019 - Ocrelizumab 07/2020 present - Methylprednisolone May 2021 5 days Good response High Accuracy: [x] History of Present Illness Narrative Initial History: The onset of multiple sclerosis occurred 2008 with symptoms of bilateral leg numbness followed by gait difficulties, and weakness in his lower extremities. MRIs and lumbar puncture was suggestive of MS diagnosis in 2008. He was on Betaseron, IV Solu-Medrol pulses that that helped with his bilateral leg strength but on for a couple of months, he was then switched to Copaxone 20 mg injectable once daily, and switched to Glatopa for the last 9 years. He was following with [facility] Dr. Carlo Stapleton. He was afraid of choosing a medication that has PML risk. He reported that his disease has slowly progressed since 2018, but it is very rapid progression in 2020. His major problems are bilateral leg weakness and numbness that interferes with his ability to ambulate with gait difficulties as well. He experienced MS hug which is intermittent he has tried a number of agents including carbamazepine, gabapentin, baclofen, and amitriptyline stopped taking them because they were not having any effect. He takes Flexeril and oxycodone for chronic leg and knee painfor which his PCP prescribes and manages. He was started on Ocrevus in Jul 2020 due to worsening of his symptoms. Was evaluated by Dr. Tejadain May 2021 at that time he was reporting ongoing bilateral leg weakness and numbness that interfere with his ability to ambulate decision was made to start IV Solu-Medrol cycle with close follow-up to assess need to change in treatment. Interval History: -Last visit with Dr. Tejada 02/2024. At that visit he was stable. -Last infusion: Ocrelizumab infusion 03/15/2024, which he tolerated well. He thinks they increased speed last one and tolerated well. Typically feels some itchiness during infusion but otherwise tolerates fine. -Outpatient visits: Had seen the spine clinic for cervical degenerative disc disease and he was sent for 2 weeks of PT. He did PT and there was some improvement. He is planning on starting PT for thelower back as well but in limbo. Doing yoga a few days a week. -Infections: He denied recent infections or infectious symptoms like fever, chills, GI or respiratory symptoms since last visit. Summary of neurologic sxs: -Vision: No loss of vision, change in vision, no pain with eye movements. -Headache: None recently. Previously with few headache related with seasonal allergy, 3-6 days/month, no migrainous feature, non positional and not related to Valsalva. -Fatigue/energy: It is manageable currently. He is taking Ritalin 20 mg BID which has drastically helped, uses turmeric. -Sleep: It is better than before, 7-8 hours and most days feels refreshed. Only wakes up 1-2 times per night now (before it was 5-6 times). He is doing a sleep test next week, he does report he snores. -Brainstem symptoms: No facial numbness or weakness, no dysphagia or dysarthria. -Neurogenic bladder & bowel: No issues. Previously with occasional urinary urgency & frequency, no incontinence, no pain in the bladder, no difficulty emptying, not on any medications. No problems with bowel movements. No loose stools or constipation. -Motor symptoms: Stable. No new weakness but does notice stiffness in his legs when he first gets up, improves through the day and when he gets moving. Both are affected but right side is worse, which is also the knee that was operated on for meniscal tear. No falls. He has a cane if needed but hasn't taken it out in a long time. Takes flexeril 10 mg at bedtime, avoids during the day d/t sedation. Has tried baclofen but couldn't tolerate d/t ?stomach upset -Sensory symptoms: He had numbness in his left middle finger last week for ~1 hr after carrying in groceries, but has resolved and no recurrence. Otherwise, no numbness and tingling. Have pain in both legs below knees and back because of MS and arthritis. - Medications: [place] 2-3x/day. Tried gabapentin & carbamazepine before with side effects (gastric upset & anxiety), never tried Lyrica or Cymbalta. Current MS-relevant Review of Systems: Yes No Description Fatigue [x] [] Cognitive [x] [] Attention issues Depression/Anxiety [x] [] Anxiety using marijuana Visual/brainstem [] [x] Motor problems [x] [] Sensory problems [] [x] Uhthoff's [x] [] GI/ problems [x] [] Stable. Neurogenic bladder with urgency and frequency Sleep problems [] [x] Constitutional sx [] [x] Migraine headaches [] [x] Medical Review of Systems: As per above in HPI. A 10-point ROS is otherwise negative. Relevant Past Medical History: No past medical history on file. Infectious Mononucleosis: Not assessed Relevant Past Surgical History: No past surgical history on file. Social History: Social History Tobacco Use Smoking status: Never Smokeless tobacco: Never Substance Use Topics Alcohol use: Not on file Family History: History of multiple sclerosis: He has a younger sister with multiple sclerosis. History of autoimmunity: Brother with psoriasis. Current Outpatient Medications: Current Outpatient Medications: ascorbic acid, vitamin C, (VITAMIN C) 250 mg tablet, Take 250 mg by mouth daily., Disp: , Rfl: biotin 1 mg tablet, Take 1,000 mcg by mouth once a day., Disp: , Rfl: cholecalciferol, vitamin D3, (Vitamin D3) 5,000 unit tablet, Take 1 tablet (5,000 Units total) by mouth daily., Disp: 30 tablet, Rfl: 11 cyclobenzaprine (FLEXERIL) 10 mg tablet, Take 10 mg by mouth 3 times a day as needed., Disp: , Rfl: HYDROcodone-acetaminophen (NORCO) 5-325 mg tablet, , Disp: , Rfl: lisinopriL (PRINIVIL,ZESTRIL) 10 mg tablet, , Disp: , Rfl: magnesium oxide (MAG-OX) 400 mg (241.3 mg mag) tablet, Take 1 tablet (241.3 mg of elemental magnesium total) by mouth every night., Disp: 60 tablet, Rfl: 3 meloxicam (MOBIC) 15 mg tablet, Take 15 mg by mouth once a day., Disp: , Rfl: methylphenidate HCl (RITALIN) 20 mg tablet, Take 1 tablet (20 mg total) by mouth 2 times a day., Disp: 60 tablet, Rfl: 0 dgpifkk-mxsh-vbhcd-oreg-capryl 100 mg-150 mg- 50 mg-150 mg capsule, Take by mouth., Disp: , Rfl: vitamin B-12 1,000 mcg tablet, TAKE 1 TABLET BY MOUTH EVERY DAY, Disp: 90 tablet, Rfl: 1 Allergies: Patient has no known allergies. Neurological Examination Vitals: 08/14/24 1400 BP: 127/86 Pulse: (!) 109 *Somewhat abbreviated as patient was 27 min late for appointment. General: No acute distress, well-groomed, appears stated age Mental Status: Awake, oriented to person, place, time. Normal fund of knowledge. Fluent speech and comprehension. Cranial Nerves: Visual guzman full to confrontation. PERRL without evidence of APD. EOMI without signs of intranuclear ophthalmoplegia. V1-V3 intact to light touch. Hearing intact. Shoulder shrug is full strength bilaterally. Motor Exam: Bulk is normal. Tone is mildly increased R>L, 1 catch on right leg. There is a fine postural tremor R>L. No drift Strength (R/L), MRC grading 0-5: Upper extremities: Shoulder abduction 5/5, elbow flexion 5/5, elbow extension 5/5, wrist extensors 5/5, finger extensors 5/5, interossei 5/5 Lower extremities: Hip flexion 4+/4+, knee flexors 5/5, knee extensors 5/5, dorsiflexors 5/5, plantar flexion 5/5. Sensation: Light touch is absent in the lower extremities below the knee, he is able to only feel pressure. Temperature loss in gradient pattern in feet to bush. Vibration is absent in L great toe and ankle but intact to ~3 s on the right toe, moderately decreased in bilateral knees, mildly in bilateral fingers. Romberg is positive. Coordination: Wkixat-kd-ohzd shows no signs of dysmetria, slow bilaterally in performing the task. Finger tapping is fluid and synchronous bilaterally. Deep tendon reflexes: (R/L): Brachioradialis 2+/2+, Biceps 2+/2+, Triceps 2+/2+, Patellar 1+/1+ without crossed adduction, Achilles absent. Gait: Ataxic slow gait with wide base with bilateral lower extremities spasticity (with right hip mild circumduction), bilateral minimal feet scuffing. Difficulty with heel and toe walking but able to take a few steps. Attempts tandem walk but unable to perform in close tandem. Lhermitte's: No EDSS: 3.0 Kurtzke Functional Systems Scores (FSS): Pyramidal Functions: 1 - Mild to moderate paraparesis or hemiparesis (detectable weakness but most function sustained for short periods, fatigue a problem); severe monoparesis (almost no function) Cerebellar Functions: 1 - Abnormal signs without disability Brainstem Functions: 0 - Normal Sensory Function: 3 - Moderate decrease in touch or pain or position sense, and/or essentially lostvibration in one or two limbs; or mild decrease in touch or pain and/or moderate decrease in all proprioceptive tests in three or four limbs Bowel and Bladder Function: 1 - Mild urinary hesitance, urgency, or retention Visual Function: 0 - Normal Cerebral (or Mental) Functions: 0 - Normal 07/21/2020 1:00 PM 07/14/2021 2:00 PM 12/05/2022 1:00 PM 02/06/2024 1:00 PM 08/14/2024 2:00 PM Kurtzke Expanded Disability Status Scale EDSS Score 6 9 Hole Peg Test 19.1 21.97 22.1 15.02 20.13 Timed 25-foot walk 16.1 15.78 9.7 11 7.9 Symbol Digit Modalities Test (SDMT) 41 44 58 54 47 Studies CSF labs: data not available Relevant Serum labs: ALLIE Virus: Negative in 02/2024: -IgG 775 Neuroimaging: MRI brain without contrast 09/01/2022: MRI cervical spine without contrast 09/01/2022: 1. Multiple foci of signal abnormality in the white matter, consistent with history of MS. No evidence of disease progression since the prior study. 2. Ill-defined foci of signal abnormality in the cervical spinal cord, consistent with history of MS. No evidence of disease progression MRI brain without contrast with ICOMETRIX 09/17/2021: MRI cervical spine without contrast 09/17/2021: Stable appearance of the MS plaques since the prior study. Multiple ill-defined MS plaques throughout the cervical cord appear similar to the prior study. MRI brain and cervical spine with and without contrast (03/08/2021): Multiple fragmentary lesions as well as left cerebellar lesion and cervical spinal cord lesions consistent with a history of multiple sclerosis. Several lesions are hypointense on the T1-weighted sequences. The brainstem and cerebellum are normal. No definite new lesions are next lesion to indicate active demyelination. Icometrix data: T2 total volume: 3.12 mL. Whole brain volume: 1672 mL on percentile greater than 99. Galvan matter volume: 8 9 3 mL, percentile 27.1. MRI Brain and C-spine- 12/12/2023 No new changes. Assessment and Plan Assessment: Braxton Pierce is a 43 y.o. Right-handed man with the history of chronic fatigue and relapsing-remitting multiple sclerosis, currently on Ocrelizumab. He has remained clinically and radiologically stable, with overall good symptom management. Today with some increase in leg spasticity manifesting as overall stiffness, improving with yoga stretching. Discussed various pharmacologic options, but atthis time pt prefers to trial supplement rather than new or increase in other medications. #RRMS #Spasticity, spasms #Fatigue Plan: - Continue Ocrevus, next infusion 08/2024 - Labs: CBC, CMP, Ig, plasma neurofilament LC (before next visit) - MRI brain /WO with ICOMETRIX, MRI cervical spine /WO - yearly follow up - Continue cyclobenzaprine 10 mg at bedtime - Trial magnesium 400 mg at bedtime for muscle spasms/stiffness. Can trial alternative agent in future if this is not effective - Continue ritalin 20 mg BID - Continue stretching exercises, yoga - Follow up in 6 mo in clinic The patient understood and agreed to the plan of care as indicated above. It was a pleasure seeing Braxton Pierce in our clinic today. Please feel free to contact me with any questions or concerns. Seen/discussed with attending, Dr. Tejada. Darling Tucker, PGY-5 Neuroimmunology Fellow documented in this encounter Miscellaneous Notes * Addendum Note - Darling Tucker MD - 08/14/2024 3:56 PM ESTAddended by: DARLING TUCKER on: 08/14/2024 03:56 PM Modules accepted: Orders documented in this encounter Plan of Treatment Upcoming Encounters Date Type Department Care Team (Late st Contact Info) Description 09/20/2024 9:00 AM EST Infusion [facility] [address] [place] [address] 02/11/2025 3:00 PM EDT Office Visit [facility] [address] [place] [address] Alumnae Secretary: Alessandra Eli documented as of this encounter Results * Due to [place] state law, this organization might not be sharing negative HIV tests. * Neurofilament Light Chain, Plasma (08/14/2024 2:31 PM EST) Neurofilament Light Chain, Plasma 4.1 <=17.3 pg/mL 08/19/2024 9:34 AM EST [facility] Comment: ADDITIONAL INFORMATION The testing method is a digital immunoassay for the quantitative determination of NfL in plasma manufactured by [employer] and performed on the Connexica-X analyzer. Values obtained with different methods may be different and cannot be used interchangeably. This test was developed and its performance characteristics determined by [facility] in a manner consistent with CLIA requirements. This test has not been cleared or approved by the U.S. Food and Drug Administration. Test Performed by: [facility] [address] [place] [address] [employer] Professor: Surinder Shannon Ph.D.; CLIA# [id number] Blood Structure of peripheral vein / Unknown Venipuncture / Unknown 08/14/2024 2:31 PM EST 08/14/2024 2:43 PM EST Mary Tejada MD LAB BLOOD ORDERABLES Final Re sult Performing Organization Address City/[facility]/ZIP Co de Phone Number [facility] [address] [place] [address], [place] [phone] * (ABNORMAL) Immunoglobulins Panel (IgG, IgA, IgM) (08/14/2024 2:31 PM EST) Pathologist [facility] Immunoglobulin A 225 47 - 310 mg/dL 08/14/2024 9:18 PM EST [employer] IgG, Serum 746 600 - 1640 mg/dL 08/14/2024 9:18 PM EST [facility] Immunoglobulin M 41(L) 50 - 300 mg/dL 08/14/2024 9:18 PM EST [facility] Blood Structure of peripheral vein / Unknown Venipuncture / Unknown 08/14/2024 2:31 PM EST 08/14/2024 2:43 PM EST Narrative [facility] - 08/14/2024 9:18 PM EST [facility] Received Date:[id number] us Mary Tejada MD LAB BLOOD ORDERABLES Final Re sult [facility] [address] [facility] [address], [place] [address], [place] [phone] [facility] [address] [facility] [address], [place] [address], [place] [phone] * (ABNORMAL) Comprehensive Metabolic Panel (08/14/2024 2:31 PM EST) NA 139 135 - 145 mmol/L 08/14/2024 3:18 PM EST [facility] K 4.5 3.5 - 5.3 mmol/L 08/14/2024 3:18 PM EST [facility] Cl 100 98 - 107 mmol/L 08/14/2024 3:18 PM EST [facility] CO2 28 22 - 32 mmol/L 08/14/2024 3:18 PM EST [facility] Anion Gap 11 5 - 15 08/14/2024 3:18 PM EST [facility] Glucose 94 65 - 99 mg/dL 08/14/2024 3:18 PM EST [facility] Creatinine 0.60 0.60 - 1.30 mg/dL 08/14/2024 3:18 PM EST [facility] Calcium 9.3 8.6 - 10.5 mg/dL 08/14/2024 3:18 PM EST [facility] Total Protein 7.0 6.0 - 8.0 g/dL 08/14/2024 3:18 PM EST [facility] Albumin 4.1 3.5 - 5.2 g/dL 08/14/2024 3:18 PM EST [facility] Bilirubin, Total 0.3 0.2 - 1.2 mg/dL 08/14/2024 3:18 PM EST [facility] Alkaline Phosphatase [...] - 23 mg/dL 08/14/2024 3:18 PM EST [facility] eGFR >90 >=60 mL/min/1. 73m2 08/14/2024 3:18 PM EST [facility] Comment:The estimated glomer ular filtration rate (eGFR) is calculated using a new formula developed by the NKF-ASN task force to eliminate race-based correction factors. The new formula uses serum/plasma creatinine, age, and gender to determine eGFR. A value below 60mls/min might indicate kidney disease and will be flagged. For additional information, see Kang et al, Am J Kidney Dis. 2021;79(2):268- 288, A Unifying Approach for GFR estimation: Recommendations of the NKF-ASN Task Force on Reassessing the Inclusion of Race in Diagnosing Kidney Disease . Globulin, Total 2.9 2.1 - 4.2 g/dL 08/14/2024 3:18 PM EST [facility] A/G Ratio 1.4(L) 1.5 - 3.0 08/14/2024 3:18 PM EST [facility] Blood Structure of peripheral vein / Unknown Venipuncture / Unknown 08/14/2024 2:31 PM EST 08/14/2024 2:43 PM EST Mary Tejada MD LAB BLOOD ORDERABLES Final Re sult [facility] [address] [place] [address], * (ABNORMAL) CBC Auto Differential (08/14/2024 2:31 PM EST) WBC 9.4 3.8 - 10.8 10*3/uL 08/14/2024 2:52 PM EST [facility] RBC 4.87 4.20 - 5.80 10*6/uL 08/14/2024 2:52 PM EST [facility] Hemoglobin 14.5 13.2 - 17.1 g/dL 08/14/2024 2:52 PM EST [facility] Hematocrit 43.7 38.5 - 50.0 % 08/14/2024 2:52 PM EST [facility] MCV 89.7 80.0 - 100.0 fL 08/14/2024 2:52 PM EST [facility] MCH 29.8 27.0 - 33.0 pg 08/14/2024 2:52 PM EST [facility] MCHC 33.2 [...] - 0.95 10*3/uL 08/14/2024 2:52 PM EST [facility] Eosinophil # 0.10 0.02 - 0.50 10*3/uL 08/14/2024 2:52 PM EST [facility] Basophil # 0.10 0.00 - 0.20 10*3/uL 08/14/2024 2:52 PM EST [facility] nRBC % 0.0 /100 WBCs 08/14/2024 2:52 PM EST [facility] nRBC # <0.01 <0.01 10*3/uL 08/14/2024 2:52 PM EST [facility] Blood Structure of peripheral vein / Unknown Venipuncture / Unknown 08/14/2024 2:31 PM EST 08/14/2024 2:43 PM EST Mary Tejada MD LAB BLOOD ORDERABLES Final Re sult [facility] [address] [place] [address], documented in this encounter Visit Diagnoses Diagnosis Multiple sclerosis, relapsing-remitting (HCC)- Primary Multiple sclerosis High risk medication use Other fatigue Muscle spasticity Spasm of muscle documented in this encounter Care Teams Menhaden Vessel Pilot Relationship Specialty Start Date End Date Suzanne Ulloa [address] [place] [address] PCP - General Family Medicine 11/02/20 documented as of this encounter
--- OUTSIDE RECORDS SUMMARY | 2024-09-02 14:29 | XMS_ITS | Encounter Summary ---
Author Organization [facility] Address [address] [place] [address] Care Team Providers Care Farm [employer] Teacher Name Role Phone Suzanne Ulloa Primary Care Provider [phone] Encounter Details Date Type Department Care Team (Late st Contact Info) Description 03/14/2024 Orders Only [facility] [address] [place] [address] Mckenna Armando, [facility] Social History Tobacco Use Types Packs/Day Years [...] Info) Description 09/20/2024 9:00 AM EST Infusion [facility] [address] [place] [address] 02/11/2025 3:00 PM EDT Office Visit [facility] [address] [place] [address] Director Of Events: Alessandra Eli documented as of this encounter Visit Diagnoses Not on filedocumented in this encounter Care Teams Farm Cro[employer] Teacher Relationship Specialty Start Date End Date Suzanne Ulloa [address] [place] [address] PCP - General Family Medicine 11/02/20 documented as of this encounter
--- OUTSIDE RECORDS SUMMARY | 2024-09-02 14:29 | XMS_ITS | Referral Summary ---
Author Organization [facility] Address [address] [place] [address] Care Team Providers Care Carpet Installer Helper Name Role Phone Suzanne Ulloa Panfilo Primary Care Provider [phone] Encounters Date Type Department Care Team Description 08/14/2024 1:00 PM EST Office Visit [facility] [address] [place] [address]102 Tile Grinder: Lizzie Muller MD Multiple sclerosis, relapsing-remitting (HCC) (Primary Dx); High risk medication use; Other fatigue; Muscle spasticity 08/13/2024 Telephone [facility] [address] [place] [address] 53711 Tile Grinder: Berny Arroyo LPN Lack Of Clin Documentation-PAC Retail Pharm Denial 07/18/2024 Refill [facility] [address] [place] [address] 22446 Tile Grinder: Berny Arroyo LPN Multiple sclerosis, relapsing-remitting (HCC); Other fatigue 06/25/2024 Refill [facility] [address] [place] [address] [phone] Tile Grinder: April Mello LPN 06/24/2024 Refill [facility] [address] [place] [address] [phone] Tile Grinder: Berny Arroyo LPN Multiple sclerosis, relapsing-remitting (HCC); Other fatigue from Last 3 Months Allergies No known active allergies Medications lisinopriL (PRINIVIL,ZEST RIL) 10 mg tablet 07/16/20 Active cyclobenzaprin e (FLEXERIL) 10 mg tablet Take 10 mg by mouth 3 times a day as needed. 06/24/20 20 Active HYDROcodone-ac etaminophen (NORCO) 5-325 mg tablet 07/30/20 Active dqqksic-qbzp-d jtjb-iiwr-uqup yl 100 mg-150 mg- 50 mg-150 mg [...] Muscle spasticity 11/16/2020 Multiple sclerosis, relapsing-remitting 07/21/20 20 Gait difficulty 07/21/2020 Other chronic pain 07/21/2020 Social History Tobacco Use Types Packs/Day Years [...] Info) Description 09/20/2024 9:00 AM EST Infusion [facility] [address] [place] [address] 02/11/2025 3:00 PM EDT Office Visit [facility] [address] [place] [address] [phone] Tile Grinder: Alessandra Eli Procedures * Due to [place] state law, this organization might not be [...] (HCC) High risk medication use NEUROFILAMENT LIGHT [id number] Routine 08/14/2024 2:31 PM EST Multiple sclerosis, relapsing-remittin g (HCC) High risk medication use HEPATITIS PANEL, ACUTE Routine 0 3:57 PM EST Multiple sclerosis (CMS/HCC) (HCC) from Last 3 Months or Most Recently Relevant to Health Maintenance Results * Due to [place] state law, this organization might not be sharing negative HIV tests. * Neurofilament Light Chain, Plasma (08/14/2024 2:31 PM EST) Neurofilament Light Chain, Plasma 4.1 <=17.3 pg/mL 08/19/2024 9:34 AM EST [facility] Comment: ADDITIONAL INFORMATION The testing method is a digital immunoassay for the quantitative determination of NfL in plasma manufactured by [employer] and performed on the [employer]Score HD-X analyzer. Values obtained with different methods may be different and cannot be used interchangeably. This test was developed and its performance characteristics determined by [facility] in a manner consistent with CLIA requirements. This test has not been cleared or approved by the U.S. Food and Drug Administration. Test Performed by: [facility] [place] [address] Medical Office Scheduler: Surinder Shannon Ph.D.; CLIA# [id number] Blood Structure of peripheral vein / Unknown Venipuncture / Unknown 08/14/2024 2:31 PM EST 08/14/2024 2:43 PM EST Mary Tejada MD LAB BLOOD ORDERABLES Final Re sult [facility] [address] [place] [address], [place] [phone] * (ABNORMAL) CBC Auto Differential (08/14/2024 2:31 PM EST) WBC 9.4 3.8 - 10.8 10*3/uL 08/14/2024 2:52 PM EST [facility] RBC 4.87 4.20 - 5.80 10*6/uL 08/14/2024 2:52 PM EST [facility] Hemoglobin 14.5 13.2 - 17.1 g/dL 08/14/2024 2:52 PM EST [facility] Hematocrit 43.7 38.5 - 50.0 % 08/14/2024 2:52 PM EST [facility] MCV 89.7 [...] - 0.50 10*3/uL 08/14/2024 2:52 PM EST [facility] Basophil # 0.10 0.00 - 0.20 10*3/uL 08/14/2024 2:52 PM EST [facility] nRBC % 0.0 /100 WBCs 08/14/2024 2:52 PM EST [facility] nRBC # <0.01 <0.01 10*3/uL 08/14/2024 2:52 PM EST [facility] Blood Structure of peripheral vein / Unknown Venipuncture / Unknown 08/14/2024 2:31 PM EST 08/14/2024 2:43 PM EST us Mary Tejada MD LAB BLOOD ORDERABLES Final Re sult [email or web address] [address] [place] [address], [place] * (ABNORMAL) Immunoglobulins Panel (IgG, IgA, IgM) (08/14/2024 2:31 PM EST) Pathologist [facility] Immunoglobulin A 225 47 - 310 mg/dL 08/14/2024 9:18 PM EST [facility] IgG, Serum 746 600 - 1640 mg/dL 08/14/2024 9:18 PM EST [facility] Immunoglobulin M 41(L) 50 - 300 mg/dL 08/14/2024 9:18 PM EST [facility] Blood Structure of peripheral vein / Unknown Venipuncture / Unknown 08/14/2024 2:31 PM EST 08/14/2024 2:43 PM EST [facility] - 08/14/2024 9:18 PM EST [facility] Received Date: Mary Tejada MD LAB BLOOD ORDERABLES Final Re sult [facility] [address] [facility] [address], [place] [address], [facility] [address] [facility] [address], [place] [address], * (ABNORMAL) Comprehensive Metabolic Panel (08/14/2024 2:31 PM EST) Pathologist [facility] NA 139 135 - 145 mmol/L 08/14/2024 [...] - 1.2 mg/dL 08/14/2024 3:18 PM EST [facility] Alkaline Phosphatase 81 35 - 129 U/L 08/14/2024 3:18 PM EST [facility] AST 23 10 - 40 U/L 08/14/2024 3:18 PM EST [facility] ALT 24 10 - 40 U/L 08/14/2024 3:18 PM EST [facility] BUN 11 7 - 23 mg/dL 08/14/2024 3:18 PM EST [facility] eGFR >90 >=60 mL/min/1. 73m2 08/14/2024 3:18 PM EST [facility] Comment:The estimated [...] - 4.2 g/dL 08/14/2024 3:18 PM EST [facility] A/G Ratio 1.4(L) 1.5 - 3.0 08/14/2024 3:18 PM EST [facility] Blood Structure of peripheral vein / Unknown Venipuncture / Unknown 08/14/2024 2:31 PM EST 08/14/2024 2:43 PM EST Mary Tejada MD LAB BLOOD ORDERABLES Final Re sult [facility] [address] [place] [address], * Hepatitis Panel, Acute (07/21/2020 3:57 PM EST) Hepatitis A IgM NON-REACT EDMOND NON-REACT EDMOND 07/22/2020 1:09 AM EST [facility] Hepatitis B Surface Antigen NON-REACT EDMOND NON-REACT EDMOND 07/22/2020 1:09 AM EST [facility] Hepatitis B Core Antibody NON-REACT EDMOND NON-REACT EDMOND 07/22/2020 1:09 AM EST [facility] Hepatitis C Antibody NON-REACT EDMOND NON-REACT EDMOND 07/22/2020 1:09 AM EST [facility] Signal To Cut-Off 0.08 <1.00 07/22/2020 1:09 AM EST [facility] Comment: HCV antibody was non-reactive. There is no laboratory evidence of HCV infection. In most cases, no further action is required. However, if recent HCV exposure is suspected, a test for HCV RNA (test code 82494) is suggested. For additional information please refer to http://education.[employer]/faq/MZI38t2 (This link is being provided for informational/ educational purposes only.) For additional information, please refer to http://[employer]/faq/IRC133 (This link is being provided for informational/ educational purposes only.) Blood Structure of peripheral vein / Unknown Venipuncture / Unknown 07/21/2020 3:57 PM EST 07/21/2020 4:01 PM EST Narrative [facility] - 07/22/2020 1:09 AM EST [facility] Received Date: Mary Tejada MD LAB BLOOD ORDERABLES Final Re sult [facility] [address] [facility] [address], [place] [address], [place] [phone] [facility] [address] [facility] [address], [place] [address], [place] [phone] from Last 3 Months or Most Recently Relevant to Health Maintenance Insurance [facility] [place] [id number] Care Teams Carpet Installer Helper Relationship Specialty Start Date End Date Suzanne Ulloa [address] [place] [address] PCP - General Family Medicine 11/02/20
--- OUTSIDE RECORDS SUMMARY | 2024-09-02 14:29 | XMS_ITS | Encounter Summary ---
Author Organization [facility] Address [address] [place] [address] Care Team Providers Care Oil Process Stillman Name Role Phone Suzanne Ulloa Panfilo Primary Care Provider [phone] Encounter Details Date Type Department Care Team (Late st Contact Info) Description 09/03/2022 myChart Message [facility] [address] [place] [address] Ac Potts MD [address] [place] [address] MRI results Social History Tobacco Use Types Packs/Day Years [...] Info) Description 09/20/2024 9:00 AM EST Infusion [facility] [address] [place] [address] [phone] 02/11/2025 3:00 PM EDT Office Visit [facility] [address] [place] [address]40 Offal Baler: Alessandra Eli documented as of this encounter Visit Diagnoses Not on filedocumented in this encounter Care Teams Oil Process Stillman Relationship Specialty Start Date End Date Suzanne Ulloa [address] [place], [place] [phone] PCP - General Family Medicine 11/02/20 documented as of this encounter
--- OUTSIDE RECORDS SUMMARY | 2024-09-02 14:29 | XMS_ITS | Encounter Summary ---
Author Organization [facility] Address [address] [place] [address] Care Team Providers Care Linecasting Machine Keyboard Operator Name Role Phone Suzanne Ulloa Panfilo Primary Care Provider [phone] Reason for Visit * Reason Onset Date Comments Lack Of Clin Documentation-PAC Retail Pharm Bishop al 08/13/2024 Encounter Details Date Type Department Care Team (Late st Contact Info) Description 08/13/2024 Telephone [facility] [address] [place] [address] Electric Meter Repairer Helper: Berny Arroyo LPN Lack Of Clin Documentation-PAC Retail Pharm Denial Social History Tobacco Use Types Packs/Day Years Used Date Smoking Tobacco: Never Smokeless Tobacco: Never Sex and Gender Information Value Date Recorded Sex Assigned at Male 11/30/2021 11:08 AM EDT Legal Sex Male 2:05 PM EST Gender Identity Male 11/30/2021 11:08 AM EDT Sexual Orientation Straight 11/30/2021 11 :08 AM EDT documented as of this encounter Miscellaneous Notes * Telephone Encounter - Jorge Hernandez - 08/13/2024 11:41 AM EST [place] for methylphenidate denied. Per insurance the following clinical documentation see below is needed and was not found on the patient's chart. Please reply back with additional information. The nextsteps for moving forward will be to re-process authorization with the additional information. Your plan does not allow coverage of this medication based on your prescriber answering NO to the following question(s): Does the patient have a diagnosis of Attention-Deficit Hyperactivity Disorder (ADHD) or Attention Deficit Disorder (ADD)? Does the patient have a diagnosis of narcolepsy confirmed by a sleep study? Is the requested drug being prescribed for the treatment Of cancer-related fatigue after Other causes Of fatigue have been ruled out? documented in this encounter Plan of Treatment Upcoming Encounters Date Type Department Care Team (Late st Contact Info) Description 09/20/2024 9:00 AM EST Infusion [facility] [address] [place] [address] 02/11/2025 3:00 PM EDT Office Visit [facility] [address] [place] [address] Electric Meter Repairer Helper: Alessandra Eli documented as of this encounter Visit Diagnoses Not on filedocumented in this encounter Care Teams Linecasting Machine Keyboard Operator Relationship Specialty Start Date End Date Suzanne Ulloa [address] [place] [address] PCP - General Family Medicine 11/02/20 documented as of this encounter
--- OUTSIDE RECORDS SUMMARY | 2024-09-02 14:29 | XMS_ITS | Encounter Summary ---
Author Organization [facility] Address [address] [place] [address] Care Team Providers Care Videogame Tester Name Role Phone Suzanne Ulloa Panfilo Primary Care Provider [phone] Encounter Details Date Type Department Care Team (Late st Contact Info) Description 12/23/2020 Orders Only [facility] CT Scan [address] [place] [address] Devendra Castaneda MD [address] [place] [address] Social History Tobacco Use Types Packs/Day Years Used Date Smoking Tobacco: Never Assessed Sex and Gender Information Value Date Recorded Sex Assigned at Male 11/30/2021 11:08 AM EDT Legal Sex Male 2:05 PM EST Gender Identity Male 11/30/2021 11:08 AM EDT Sexual Orientation Straight 11/30/2021 11 :08 AM EDT documented as of this encounter Plan of Treatment Upcoming Encounters Date Type Department Care Team (Late st Contact Info) Description 09/20/2024 9:00 AM EST Infusion [facility] [address] [place], [place] [phone] 02/11/2025 3:00 PM EDT Office Visit [facility] [address] [place] [phone] Syrup Shed Supervisor: Alessandra Eli documented as of this encounter Visit Diagnoses Not on filedocumented in this encounter Care Teams Videogame Tester Relationship Specialty Start Date End Date Suzanne Ulloa [address] [place] [address] PCP - General Family Medicine 11/02/20 documented as of this encounter
== END 2024-09-02 13:40 | disposition home or self-care (01) ==
PROVIDERS: PCP Family Medicine; Visit Provider Physician Assistant
DX: M17.0 Bilateral primary osteoarthritis of knee (principal)
CPT/HCPCS: 20610; 99213

== ENCOUNTER → 2024-09-02 13:12 | Outpatient (BNVA) | payer OTHER, SELFPAY | PROVIDERS: PCP Family Medicine; Visit Provider Physician Assistant | DX: M17.0 Bilateral primary osteoarthritis of knee (principal) | CPT/HCPCS: 20610; 99212; J1010; J2003 ==

== ENCOUNTER 2024-12-02 13:32 | Outpatient (AMB) | payer OTHER, SELFPAY ==
--- NOTE | 2024-12-02 13:38 | A.OFFVIS_ITS ---
Intake Visit Reasons: Inj- B/L knee cortisone inject last inj-09/02/24 Intake Note: Braxton is a 43 year old male who presents today for a follow up of bilateral knee, last cortisone injections on 09/02/24. Patient states injection helped with his pain and he would like to repeat injection today. Allergies acetaminophen [From TYLENOL] Allergy (Unknown, Verified 12/02/24 13:46) N/V codeine [CODEINE] Allergy (Unknown, Verified 12/02/24 13:46) NAUSEA VOMITING Codeine Phosphate Allergy (Unknown, Uncoded 12/02/24 13:46) onknown Diclofenac Allergy (Unknown, Uncoded 12/02/24 13:46) rash Codeine Sulfate Adverse Reaction (Unknown, Uncoded 12/02/24 13:46) GI upset HPI HPI Inj- B/L knee cortisone inject last inj-09/02/24: Details: 44-year-old gentleman returns to the office today for bilateral knee injections. He continues to have discomfort with daily activities which is relief with the injections. [facility] Social History Alcohol intake: never Current occupational status: unemployed Current occupation: Right Handed Review of Systems Const All systems reviewed & are unremarkable except as noted in HPI and below Physical Exam Const General: cooperative, healthy appearing, comfortable and no acute distress Orientation/consciousness: patient oriented x3 Neck Neck: Yes normal visual inspection and Yes no JVD Chest Chest palpation & inspection: normal inspection of the chest Resp Effort & Inspection: normal respiratory effort Auscultation: clear to auscultation bilaterally, crackles (no), rales (no), rhonchi (no) and wheezes (no) Cardio Jugular venous distension: no JVD Rate: regular rate Rhythm: regular rhythm Heart sounds: S1 normal heart sound present, S2 normal heart sound present, Murmur heart sound present (no) and Rub heart sound present (no) Neuro General: patient oriented x3 Extrem Other: Bilateral knee: Skin intact, no erythema or joint effusion. Tenderness along the medial and lateral joint line. Full ROM with crepitus. Negative Kim?s. No ligamentous laxity. NVI. General: Yes normal to inspection, Yes no pedal edema and Yes no calf tenderness Psych Appearance: grossly normal Mental Status: mental status grossly normal Speech and movement: Normal speech and movement present Office Procedures AMB Joint Injection/Aspiration Joint Injection/Aspiration Primary Site: right knee Secondary Site: left knee Prep: site was prepped using aseptic technique, ethochloride spray was applied and injection warnings given Injected: 80 mg of, DepoMedrol, with 8 mL of, 1% plain lidocaine and in the joint Approach Used: anterolateral Procedure: The patient tolerated the procedure well and there was some relief with the local anesthesia Coding 93496 - Glenohumeral/Tronchanteric Bursa/Intraarticular Procedure code (CPT) selection complete Assessment & Plan Assessment & Plan (1) Primary osteoarthritis of knees, bilateral: Code(s): M17.0 - Bilateral primary osteoarthritis of knee Category: Medical Plan We discussed options today, which include steroid injection. The patient did consent to move forward with the bilateral knee steroid injection , which was tolerated well. I recommended rest, ice, and elevation and OTC anti- inflammatories as needed for discomfort. If symptoms persist or worsens over the next 6-8 weeks, patient will contact the office, otherwise follow-up as needed. Coding Level of Care Code Est Pt Level 3 (46516) Complex EM visit Add On G2211 Diagnoses Primary osteoarthritis of knees, bilateral M17.0 CPT Codes Coding - Joint 7: 29527 - Glenohumeral/Tronchanteric Bursa/Intraarticular ([id number])
--- OUTSIDE RECORDS SUMMARY | 2024-12-02 14:58 | XMS_ITS | Encounter Summary ---
Author Organization [facility] Address [address] [place] [address] Care Team Providers Care Operations Leader Name Role Phone Herrera Arteaga DO Primary Care Provider [phone] Encounter Details Date Type Department Care Team (Late st Contact Info) Description 09/03/2022 myChart Message [facility]rology [facility] [address] [place] [address] Ac Potts MD [address] [place] [address] MRI results Social History Tobacco Use Types [...] Care Team (Late st Contact Info) Description 03/22/2025 9:00 AM EDT Infusion [facility] [address] [place] [address] [phone] documented as of this encounter Visit Diagnoses Not on filedocumented in this encounter Care Teams Operations Leader Relationship Specialty Start Date End Date Herrera Arteaga DO [address] [place] [address] [phone] PCP - General 09/18/24 documented as of this encounter
--- OUTSIDE RECORDS SUMMARY | 2024-12-02 14:58 | XMS_ITS | Encounter Summary ---
Author Organization [facility] Address [address] [place] [address] Care Team Providers Care Traffic Personnel Supervisor Name Role Phone Herrera Arteaag DO Primary Care Provider [phone] Encounter Details Date Type Department Care Team (Late st Contact Info) Description 12/23/2020 Orders Only [facility] CT Scan [address] [place] [address] Devendra Castaneda MD [address] [place] [address] Social History Tobacco Use Types Packs/Day Years [...] Info) Description 03/22/2025 9:00 AM EDT Infusion [facility] [address] [place], [place] [phone] documented as of this encounter Visit Diagnoses Not on filedocumented in this encounter Care Teams Traffic Personnel Supervisor Relationship Specialty Start Date End Date Herrera Arteaga DO [address] [place] [address] PCP - General 09/18/24 documented as of this encounter
--- OUTSIDE RECORDS SUMMARY | 2024-12-02 14:58 | XMS_ITS | Encounter Summary ---
Author Organization [facility] Address [address] [place] [address] Care Team Providers Care Seo Professional Name Role Phone Herrera Arteaga Primary Care Provider [phone] Encounter Details Date Type Department Care Team (Late st Contact Info) Description 09/05/2022 Orders Only [facility]rology Clinic [address] [place] [address] Provider, MD Nasrin [address] [place] [address] Social History Tobacco Use Types Packs/Day Years [...] Encounters Date Type Department Care Team (Late Contact Info) Description 03/22/2025 9:00 AM EDT Infusion [facility] [address] [place] [address] documented as of this encounter Procedures * Due to [place] law, this organization might not be sharing negative HIV tests. Procedure Name Priority Date/Time Associated Diagnosis Comments AMB EXTERNAL MRI BRAIN, OUTS JOHN RESULT Routine 09/05/2022 AMB EXTERNAL MRI C-SPINE, OU TSIDE RESULT Routine 09/05/2022 documented in this encounter Results * Due to [place] law, this organization might not be sharing [...] on filedocumented in this encounter Care Teams Seo Professional Relationship Specialty Start Date End Date Herrera Arteaga DO [address] [place] [address] PCP - General 09/18/24 documented as of this encounter
--- OUTSIDE RECORDS SUMMARY | 2024-12-02 14:58 | XMS_ITS | Referral Summary ---
Author Organization [facility] Address [address] [place] [address] Care Team Providers Care Sports Medicine Masseur Name Role Phone ChandlerHerrera carvalho Primary Care Provider Encounters Date Type Department Care Team Description 11/11/2024 Refill [facility] [address] [place] [address] [phone] Transition Social Worker: April Mello LPN Other fatigue 10/18/2024 Telephone [facility] [address] [place] [address] [phone] Transition Social Worker: Berny Arroyo LPN 10/10/2024 Refill [facility] [address] [place] [address] 34462 Transition Social Worker: April Mello LPN Other fatigue 10/03/2024 Orders Only [facility] [address] [place] [address] [phone] Transition Social Worker: Lizzie Muller MD Other fatigue (Primary Dx) 10/03/2024 Telephone [facility] [address] [place] [address] [phone] Transition Social Worker: Berny Arroyo LPN 10/01/2024 Telephone [facility] [address] [place] [address] 83638 Transition Social Worker: Alessandra Eli Telephone Intake, Staff PAC Rx Questions 09/30/2024 Telephone [facility] [address] [place] [address] 34098 Transition Social Worker: April Mello LPN 09/30/2024 Refill [facility] [address] [place] [address] 18961 Transition Social Worker: April Mello LPN 09/26/2024 Orders Only [facility] [address] [place] [address] 58382 Transition Social Worker: Susan Coleman, 09/25/2024 Orders Only [facility] [address] [place] [address] 30137 Transition Social Worker: Susan Coleman, DO Multiple sclerosis, relapsing-remitting; Other fatigue 09/21/2024 9:00 AM EST Infusion [facility] [address] [place] [address] 88298 Geena Vizcaino RN Multiple sclerosis, relapsing-remitting (Primary Dx) 09/20/2024 Telephone [facility] [address] [place] [address] 90209 Transition Social Worker: Jeremiah Jacobsen Prior Authorization (PEDRO REQ (MS)) 09/19/2024 Telephone [facility] [address] [place] [address] 85270 Transition Social Worker: Alessandra Eli Telephone Intake, Staff requesting call back medication 09/17/2024 Telephone [facility] [address] [place] [address] 50860 Transition Social Worker: Alessandra Eli Telephone Intake, Staff PAC Rx Questions; PAC Dr Tejada Prior Auth (Add. Info Required); PAC RX Refill Dr Tejada 09/11/2024 Refill [facility] [address] [place] [address] 97422 Transition Social Worker: April Mello LPN Multiple sclerosis, relapsing-remitting; Other fatigue 09/06/2024 Refill [facility] [address] [place] [address] [phone] Transition Social Worker: Stacey Qiu MD from Last 3 Months Allergies No known active allergies Medications lisinopriL (PRINIVIL,ZESTR IL) 10 mg tablet 0 Active cyclobenzaprine (FLEXERIL) 10 mg tablet Take 10 mg by mouth 3 times a day as needed. 0 Active HYDROcodone-te taminophen (NORCO) 5-325 mg tablet 0 Active obditwg-ldpr-qk lkm-yirp-jcrtsx 100 mg-150 mg- 50 mg-150 mg capsule Take by mouth. Activ e biotin 1 mg tablet Take 1,000 mcg by mouth once a day. Active ascorbic acid, vitamin C, (VITAMIN C) 250 mg tablet Take 250 mg by mouth daily. Active meloxicam (MOBIC) 15 mg tablet Take 15 mg by mouth once a day. 1 Active cholecalciferol , vitamin D3, (Vitamin D3) 5,000 unit tabletIndicatio ns:Multiple sclerosis, relapsing-remit ting (HCC),Vitamin D deficiency Take 1 tablet (5,000 Units total) by mouth daily. 30 tablet 11 4 01/09/20 25 Active magnesium oxide (MAG-OX) 400 mg (241.3 mg mag) tablet Take 1 tablet (241.3 mg of elemental magnesium total) by mouth every night. 60 tablet 3 5 Active cyanocobalamin (vitamin B-12) 1,000 mcg tablet Take 1 tablet (1,000 mcg total) by mouth once a day. 90 tablet 1 5 Active methylphenidate HCl (RITALIN) 20 mg tabletIndicatio ns:Other fatigue Take 1 tablet (20 mg total) by mouth 2 times a day. 60 tablet Active Active Problems Problem Noted Date Diagnosed Date [...] Sign Reading Time Taken Comments Blood Pressure 138/80 09/21/2024 9:04 AM EST Pulse 81 09/21/2024 9:04 AM EST Temperature 36.9 ??C (98.4 ??F) 09/21/2024 9:04 AM ES T Respiratory Rate 20 09/21/2024 9:04 AM EST Oxygen Saturation 100% 09/21/2024 9:04 AM EST Inhaled Oxygen Concentration - - Weight 170.3 kg (375 lb 7.1 oz) 09/21/2024 9:04 AM EST Height 179.6 cm (5' 10.71 ) 09/21/2024 9:[address] Body Mass Index 52.8 09/21/2024 9:04 AM EST Plan of Treatment Upcoming Encounters Date Type Department Care Team (Late st Contact Info) Description 03/22/2025 9:00 AM EDT Infusion [facility] [address] [place] [address] [phone] Procedures * Due to [place] state law, this organization might not be sharing negative HIV tests. Procedure Name Priority Date/Time Associated Diagnosis Comments IGG Routine 09/21/2024 9:30 AM EST Multiple sclerosis, relapsing-remitting HEPATITIS PANEL, ACUTE Routine 07/21/2020 3:57 PM EST Multiple sclerosis from Last 3 Months or Most Recently Relevant to Health Maintenance Results * Due to [place] state law, this organization might not be sharing negative HIV tests. * IgG (09/21/2024 9:30 AM EST) IgG, Serum 728 600 - 1640 mg/dL 09/21/2024 4:02 PM EST [facility] Blood Structure of peripheral vein / Unknown Venipuncture / Unknown 09/21/2024 9:30 AM EST 09/21/2024 9:52 AM EST [facility] - 09/21/2024 4:02 PM EST [facility] Received Date: Julia Mark Cole BILLET CHECKER LAB BLOOD ORDERABLES Final Result Performing Organization Address City/State/[facility] Co de Phone Number [facility] [address] [facility] [address], [place] [address], [facility] [address], [place] [address], * Hepatitis Panel, Acute (07/21/2020 3:57 PM EST) Hepatitis A IgM NON-REACT EDMOND NON-REACT EDMOND 07/22/2020 1:09 AM EST [facility] Hepatitis B Surface Antigen NON-REACT EDMOND NON-REACT EDMOND 07/22/2020 1:09 AM EST [facility] Hepatitis B Core Antibody NON-REACT EDMOND NON-REACT EDMOND 07/22/2020 1:09 AM EST [facility] Hepatitis C Antibody NON-REACT EDMOND NON-REACT EDMOND 07/22/2020 1:09 AM [facility] Signal To Cut-Off 0.08 <1.00 07/22/2020 1:09 AM EST [facility] Comment: HCV antibody was non-reactive. There is no laboratory evidence of HCV infection. In most cases, no further action is required. However, if recent HCV exposure is suspected, a test for HCV RNA (test code 89284) is suggested. For additional information please refer to http://PackLate.com.Iceni Technology/faq/QMZ45k7 (This link is being provided for informational/ educational purposes only.) For additional information, please refer to http://PackLate.com.[employer]eni [employer]/faq/OID114 (This link is being provided for informational/ educational purposes only.) Blood Structure of peripheral vein / Unknown Venipuncture / Unknown 07/21/2020 3:57 PM EST 07/21/2020 4:01 PM EST Narrative [facility] - 07/22/2020 1:09 AM EST [facility] Received Date: Mary Tejada MD LAB BLOOD ORDERABLES Final Re sult [facility] [place] [address] [facility] [address] [facility], [place] [address], [facility] [address], [place] [address], from Last 3 Months or Most Recently Relevant to Health Maintenance Insurance [facility] Care Teams Sports Medicine Masseur Relationship Specialty Start Date End Date Herrera [place] [address] PCP - General 09/18/24
--- OUTSIDE RECORDS SUMMARY | 2024-12-02 14:58 | XMS_ITS | Encounter Summary ---
Author Organization [facility] Address [address] [place] [address] Care Team Providers Care Land Acquisition Manager Name Role Phone Herrera Arteaga DO Primary Care Provider [phone] Encounter Details Date Type Department Care Team (Late st Contact Info) Description 03/14/2024 Orders Only [facility] [address] [place] [address] Mckenna Armando [facility] Social History Tobacco Use Types Packs/Day Years [...] Info) Description 03/22/2025 9:00 AM EDT Infusion [facility] [address] [place] [address] documented as of this encounter Visit Diagnoses Not on filedocumented in this encounter Care Teams Land Acquisition Manager Relationship Specialty Start Date End Date Herrera Arteaga DO [facility] [place] [address] PCP - General 09/18/24 documented as of this encounter
--- OUTSIDE RECORDS SUMMARY | 2024-12-02 14:58 | XMS_ITS | Clinical Summary ---
Author Organization [facility] Address [address] [place] [address] Care Team Providers Care Propulsion Motor And Generator Repairer Name Role Phone Herrera Arteaga Primary Care Provider [phone] Allergies No known active allergies Medications lisinopriL (PRINIVIL,ZESTR IL) 10 mg tablet 0 Active cyclobenzaprine (FLEXERIL) 10 mg tablet Take 10 mg by mouth 3 times a day as needed. 0 Active HYDROcodone-te taminophen (NORCO) 5-325 mg tablet 0 Active cogwflo-rpjo-uk elx-gdek-nhyumd 100 mg-150 mg- 50 mg-150 mg capsule [...] mouth 2 times a day. 60 tablet 5 Active Active Problems Problem Noted Date Diagnosed Date Other fatigue 06/08/2021 Numbness and tingling of both legs 11/16/2020 Impaired functional mobility, balance, gait, and endurance 11/16/2020 Muscle spasticity 11/16/2020 Multiple sclerosis, relapsing-remitting 07/21/20 20 Gait difficulty 07/21/2020 Other chronic pain 07/21/2020 Encounters Date Type Department Care Team Description 11/11/2024 Refill [facility] [address] [place] [address] 55368 Pharmacy Order Entry Technician: April Mello LPN Other fatigue 10/18/2024 Telephone [facility] [address] [place] [address] 69859 Pharmacy Order Entry Technician: Berny Arroyo LPN 10/10/2024 Refill [facility] [address] [place] [address] 32228 Pharmacy Order Entry Technician: April Mello LPN Other fatigue 10/03/2024 Orders Only [facility] [address] [place] [address] [phone] Pharmacy Order Entry Technician: Lizzie Muller MD Other fatigue (Primary Dx) 10/03/2024 Telephone [facility] [address] [place] [address] [phone] Pharmacy Order Entry Technician: Berny Arroyo LPN 10/01/2024 Telephone [facility] [address] [place] [address] [phone] Pharmacy Order Entry Technician: Alessandra Eli Telephone Intake, Staff PAC Rx Questions 09/30/2024 Telephone [facility] [address] [place] [address] 16256 Pharmacy Order Entry Technician: April Mello LPN 09/30/2024 Refill [facility] [address] [place] [address] [phone] Pharmacy Order Entry Technician: April Mello LPN 09/26/2024 Orders Only [facility] [address] [place] [address] [phone] Pharmacy Order Entry Technician: Susan Coleman DO 09/25/2024 Orders Only [facility] [address] [place] [address] [phone] Pharmacy Order Entry Technician: Susan Coleman DO Multiple sclerosis, relapsing-remitting; Other fatigue 09/21/2024 9:00 AM EST Infusion [facility] [address] [place] [address] 06726 Geena Vizcaino RN Multiple sclerosis, relapsing-remitting (Primary Dx) 09/20/2024 Telephone [facility] [address] [place] [address] 64020 Pharmacy Order Entry Technician: Jeremiah Jacobsen Prior Authorization (PEDRO DE [place] ([place])) 09/19/2024 Telephone [facility] [address] [place] [address] [phone] Pharmacy Order Entry Technician: Alessandra Eli Telephone Intake, Staff requesting call back medication 09/17/2024 Telephone [facility] [address] [place] [address] 96635 Pharmacy Order Entry Technician: Alessandra Eli Telephone Intake, Staff PAC Rx Questions; PAC Dr Tejada Prior Auth (Add. Info Required); PAC RX Refill Dr Tejada 09/11/2024 Refill [facility] [address] [place] [address] [phone] Pharmacy Order Entry Technician: April Mello LPN Multiple sclerosis, relapsing-remitting; Other fatigue 09/06/2024 Refill [facility] [address] [place] [address] 38403 Pharmacy Order Entry Technician: Stacey Qiu MD from Last 3 Months Social History Tobacco [...] Info) Description 03/22/2025 9:00 AM EDT Infusion [facility] [address] [place] [address] 95681 Health Maintenance Due Date Last Done Comments Varicella Vaccines (1 of 2 - 13+ 2-dose series) 10/24/1995 Hepatitis B Vaccines (1 of 3 - 19+ 3-dose series) 2001 COVID-19 Vaccine (2023-2 5 season) 2024 Alcohol/Substance Use Screening 07/31/2024 Depression Screening and Follow-Up 07/31/2024 Social Drivers of Health Annual Screening 07/31/2024 Influenza Vaccine (Season Ended) 2025 DTaP,Tdap,and Td Vaccines (4 - Td or Tdap) 03/03/2030 03/03/2020, 08/01/2019, 04/15/2014 RSV Vaccine (60+ years old and patients) (1 - 1-dose 75+ series) 2057 HIV Screening Completed 07/21/2020 Hepatitis C Screening Completed 07/21/2020 Pneumococcal Vaccine: Pediatric (0-5 Years) and At-Risk Patients (6-50 Years) Aged Out No longer eligible based on patient's age to complete this topic Procedures * Due to [place] law, this organization might not be sharing negative HIV tests. Procedure Name Priority Date/Time Associated Diagnosis Comments IGG Routine 09/21/2024 9:30 AM EST Multiple sclerosis, relapsing-remitting HEPATITIS PANEL, ACUTE Routine 07/21/2020 3:57 PM EST Multiple sclerosis from Last 3 Months or Most Recently Relevant to Health Maintenance Results * Due to [place] law, this organization might not be sharing negative HIV tests. * IgG (09/21/2024 9:30 AM EST) IgG, Serum 728 600 - 1640 mg/dL 09/21/2024 4:02 PM EST [employer] [facility] Blood Structure of peripheral vein / Unknown Venipuncture / Unknown 09/21/2024 9:30 AM EST 09/21/2024 9:52 AM EST Narrative [facility] - 09/21/2024 4:02 PM EST [facility] Received Date: Julia Cole STUDIO ASSOCIATE LAB BLOOD ORDERABLES Final Result [facility] [address] [facility] [address]rd [address], [place] [address], [employer] [facility] [address], [place] [address], [place] [phone] * Hepatitis Panel, Acute (07/21/2020 3:57 PM EST) Hepatitis A IgM NON-REACT EDMOND NON-REACT EDMOND 07/22/2020 1:09 AM EST [employer] [facility] Hepatitis B Surface Antigen NON-REACT EDMOND NON-REACT EDMOND 07/22/2020 1:09 AM EST [employer] [facility] Hepatitis B Core Antibody NON-REACT EDMOND NON-REACT EDMOND 07/22/2020 1:09 AM EST [facility] [facility] Hepatitis C Antibody NON-REACT EDMOND NON-REACT EDMOND 07/22/2020 1:09 AM EST [facility] [facility] Signal To Cut-Off 0.08 <1.00 07/22/2020 1:09 AM EST [employer] [facility] Comment: HCV antibody was non-reactive. There is no laboratory evidence of HCV infection. In most cases, no further action is required. However, if recent HCV exposure is suspected, a test for HCV RNA (test code 08862) is suggested. For additional information please refer to http://[employer]cline [employer].Mimecast/faq/TYM85a7 (This link is being provided for informational/ educational purposes only.) For additional information, please refer to http://[employer].Mimecast/faq/TZB501 (This link is being provided for informational/ educational purposes only.) Blood Structure of peripheral vein / Unknown Venipuncture / Unknown 07/21/2020 3:57 PM EST 07/21/2020 4:01 PM EST Narrative [facility] - 07/22/2020 1:09 AM EST [facility] Received Date: Mary Tejada MD LAB BLOOD ORDERABLES Final Re sult [facility] [address] [facility] [address], [place] [address], [place] [phone] [facility] [employer] [facility] [address] [facility] [address]rd [address], [place] [address], [place] [phone] from Last 3 Months or Most Recently Relevant to Health Maintenance Insurance [facility] P[place]RO [place] [id number] Care Teams Propulsion Motor And Generator Repairer Relationship Specialty Start Date End Date Herrera Arteaga DO [address] [place] [address] PCP - General 09/18/24
== END 2024-12-02 13:57 | disposition home or self-care (01) ==
LOC: HO.HOS 13:32
PROVIDERS: PCP Family Medicine; Visit Provider Physician Assistant
DX: M17.0 Bilateral primary osteoarthritis of knee (principal)
CPT/HCPCS: 20610; 99213

== ENCOUNTER → 2024-12-02 13:32 | Outpatient (BNVA) | payer OTHER, SELFPAY | PROVIDERS: PCP Family Medicine; Visit Provider Physician Assistant | DX: M17.0 Bilateral primary osteoarthritis of knee (principal) | CPT/HCPCS: 20610; 99212; J1010; J2003 ==

== ENCOUNTER 2025-02-04 10:37 | Outpatient (AMB) | payer OTHER, SELFPAY ==
[2025-02-04 10:46] VITALS: BMI 48.8
--- NOTE | 2025-02-04 10:46 | A.OFFVIS_ITS ---
Vital Signs 02/04/25 10:46 Height 6 ft Weight 360 lb BMI 48.8 Intake Visit Reasons: INJ- B/L knee Durolane injections Intake Note: Braxton is a 44 year old male who presents today for Durolane injections to both of his knees. He was last seen in office on 12/02/2024 and was given cortisone injections. Allergies acetaminophen (From TYLENOL) Allergy (Unknown, Verified 02/04/25 10:46) N/V codeine (CODEINE) Allergy (Unknown, Verified 02/04/25 10:46) NAUSEA VOMITING Codeine Phosphate Allergy (Unknown, Uncoded 02/04/25 10:46) onknown Diclofenac Allergy (Unknown, Uncoded 02/04/25 10:46) rash Codeine Sulfate Adverse Reaction (Unknown, Uncoded 02/04/25 10:46) GI upset HPI HPI INJ- B/L knee Durolane injections: Details: A 44-year-old gentleman returns to the office today for bilateral knee drilling injections. He states his right knee has been more stiff than usual and he has been ambulating with a cane. [facility] Social History Alcohol intake: never Current occupational status: unemployed Current occupation: Right Handed Review of Systems Const All systems reviewed & are unremarkable except as noted in HPI and below Physical Exam Vital Signs: BMI result Body Mass Index 48.8 Const General: cooperative and no acute distress Orientation/consciousness: patient oriented x3 Neck Neck: Yes normal visual inspection and Yes no JVD Chest Chest palpation & inspection: normal inspection of the chest Resp Effort & Inspection: normal respiratory effort and able to speak in complete sentences Auscultation: clear to auscultation bilaterally, crackles (no), rales (no), rhonchi (no) and wheezes (no) Cardio Jugular venous distension: no JVD Rate: regular rate Rhythm: regular rhythm Heart sounds: S1 normal heart sound present, S2 normal heart sound present, Mu rmur heart sound present (no) and Rub heart sound present (no) Peripheral pulses: Peripheral pulses 2+ throughout Neuro General: patient oriented x3 Extrem Other: Bilateral knee: Skin intact, no erythema or joint effusion. Tenderness along the medial and lateral joint line. Full ROM with crepitus. Negative Kim?s. No ligamentous laxity. NVI. General: Yes normal to inspection, Yes no pedal edema and Yes no calf tenderness Psych Appearance: grossly normal Mental Status: mental status grossly normal Speech and movement: Normal speech and movement present Office Procedures AMB Joint Injection/Aspiration Joint Injection/Aspiration Details: yovani bowerjayna Primary Site: right knee Secondary Site: left knee Prep: site was prepped using aseptic technique, ethochloride spray was applied and injection warnings given Injected: in the joint Approach Used: anterolateral Procedure: The patient tolerated the procedure well and there was some relief with the local anesthesia Coding 15857 - Glenohumeral/Tronchanteric Bursa/Intraarticular Procedure code (CPT) selection complete Assessment & Plan Assessment & Plan (1) Primary osteoarthritis of knees, bilateral: Code(s): M17.0 - Bilateral primary osteoarthritis of knee Category: Medical Plan We discussed options today, which include steroid injection. The patient did consent to move forward with the bilateral knee gel injection , which was tolerated well. I recommended rest, ice, and elevation and OTC anti- inflammatories as needed for discomfort. If symptoms persist or worsens over the next 6-8 weeks, patient will contact the office, otherwise follow-up as needed. Coding Level of Care Code Procedure Only Diagnoses Primary osteoarthritis of knees, bilateral M17.0 CPT Codes Coding - Joint 7: 51617 - Glenohumeral/Tronchanteric Bursa/Intraarticular ([id number])
--- OUTSIDE RECORDS SUMMARY | 2025-02-04 11:37 | XMS_ITS | Encounter Summary ---
Author Organization [facility] Address [address] [place] [address] Care Team Providers Care Lithographic Plate Maker Apprentice Name Role Phone Herrera Arteaga Primary Care Provider [phone] Encounter Details Date Type Department Care Team (Late st Contact Info) Description 09/03/2022 myChart Message [facility] [address] [place] [address]330 Ac Potts MD [address] [place] [address] [phone] MRI results Social History Tobacco Use Types [...] Care Team (Late st Contact Info) Description 02/12/2025 3:00 PM EDT Office Visit [facility] [address] [place] [address] 26004 Senior Art Director: Alessandra Eli 03/22/2025 9:00 AM EDT Infusion [facility] [address] [place] [address] [phone] documented as of this encounter Visit Diagnoses Not on filedocumented in this encounter Care Teams Lithographic Plate Maker Apprentice Relationship Specialty Start Date End Date Herrera Arteaga DO [address] [place] [address] PCP - General 09/18/24 documented as of this encounter
== END 2025-02-04 11:46 | disposition home or self-care (01) ==
LOC: HO.HOS 10:38
PROVIDERS: PCP Family Medicine; Visit Provider Physician Assistant
DX: M17.0 Bilateral primary osteoarthritis of knee (principal)
CPT/HCPCS: 20610

== ENCOUNTER → 2025-02-04 10:37 | Outpatient (BNVA) | payer OTHER, SELFPAY | PROVIDERS: PCP Family Medicine; Visit Provider Physician Assistant | DX: M17.0 Bilateral primary osteoarthritis of knee (principal) | CPT/HCPCS: 20610; J7318 ==

== ENCOUNTER 2025-03-12 13:45 | Outpatient (AMB) | payer OTHER, SELFPAY ==
--- NOTE | 2025-03-12 13:51 | A.OFFVIS_ITS ---
Intake Visit Reasons: Inj- B/L knee cortisone injection Intake Note: Braxton is a 43 year old male who presents today for a follow up of bilateral knee, last cortisone injections on 12/02/24. Patient reports injection provided him with some relief, he is requesting to repeat injections today. Allergies acetaminophen (From TYLENOL) Allergy (Unknown, Verified 03/12/25 14:00) N/V codeine (CODEINE) Allergy (Unknown, Verified 03/12/25 14:00) NAUSEA VOMITING Codeine Phosphate Allergy (Unknown, Uncoded 03/12/25 14:00) onknown Diclofenac Allergy (Unknown, Uncoded 03/12/25 14:00) rash Codeine Sulfate Adverse Reaction (Unknown, Uncoded 03/12/25 14:00) GI upset Medication List - Last Reconciled 03/12/25 by Stas Roberts PA-C cyclobenzaprine 10 mg PO TID PRN dextroamphetamine-amphetamine 10 mg 1 tab PO DAILY glatiramer mg subcut hydrocodone-acetaminophen 10-325 mg 1 - 2 tabs PO TID PRN lisinopril 10 mg PO DAILY meloxicam 15 mg PO DAILY 30 days HPI HPI Inj- B/L knee cortisone injection: Details: 44-year-old gentleman returns to the office today for bilateral knee pain. He has just completed his gel series and continues to have some mild discomfort with daily activities. He has had relief with steroid injections in the past and would like to pursue this today. [facility] Social History Alcohol intake: never Current occupational status: unemployed Current occupation: Right Handed Review of Systems Const All systems reviewed & are unremarkable except as noted in HPI and below Physical Exam Const General: cooperative and no acute distress Orientation/consciousness: patient oriented x3 Neck Neck: Yes normal visual inspection and Yes no JVD Chest Chest palpation & inspection: normal inspection of the chest Resp Effort & Inspection: normal respiratory effort and able to speak in complete sentences Auscultation: clear to auscultation bilaterally, crackles (no), rales (no), rhonchi (no) and wheezes (no) Cardio Jugular venous distension: no JVD Rate: regular rate Rhythm: regular rhythm Heart sounds: S1 normal heart sound present, S2 normal heart sound present, Murmur heart sound present (no) and Rub heart sound present (no) Peripheral pulses: Peripheral pulses 2+ throughout Neuro General: patient oriented x3 Extrem Other: Bilateral knee: Skin intact, no erythema or joint effusion. Tenderness along the medial and lateral joint line. Full ROM with crepitus. Negative Kim?s. No ligamentous laxity. NVI. General: Yes normal to inspection, Yes no pedal edema and Yes no calf tenderness Psych Appearance: grossly normal Mental Status: mental status grossly normal Speech and movement: Normal speech and movement present Office Procedures AMB Joint Injection/Aspiration Joint Injection/Aspiration Primary Site: right knee Secondary Site: left knee Prep: site was prepped using aseptic technique, ethochloride spray was applied and injection warnings given Injected: 80 mg of, DepoMedrol, with 8 mL of, 1% plain lidocaine and in the joint Approach Used: anterolateral Procedure: The patient tolerated the procedure well and there was some relief with the local anesthesia Coding 07047 - Glenohumeral/Tronchanteric Bursa/Intraarticular Procedure code (CPT) selection complete Assessment & Plan Assessment & Plan (1) Primary osteoarthritis of knees, bilateral: Code(s): M17.0 - Bilateral primary osteoarthritis of knee Category: Medical Plan We discussed options today, which include steroid injection. The patient did consent to move forward with the bilateral knee steroid injection , which was tolerated well. I recommended rest, ice, and elevation and OTC anti- inflammatories as needed for discomfort. If symptoms persist or worsens over the next 6-8 weeks, patient will contact the office, otherwise follow-up as needed. Coding Level of Care Code Est Pt Level 3 (94577) Complex EM visit Add On G2211 Diagnoses Primary osteoarthritis of knees, bilateral M17.0 CPT Codes Coding - Joint 7: 16886 - Glenohumeral/Tronchanteric Bursa/Intraarticular ([id number])
--- OUTSIDE RECORDS SUMMARY | 2025-03-12 14:09 | XMS_ITS | Encounter Summary ---
Author Organization [facility] Address [address] [place] [address] Care Team Providers Care Mechanical Process Engineer Name Role Phone Herrera Arteaga Primary Care Provider Encounter Details Date Type Department Care Team (Late st Contact Info) Description 09/03/2022 myChart Message [facility] [address] [place] [id number] Ac Potts MD [address] [place] [id number] MRI results Social History Tobacco Use Types [...] Info) Description 03/22/2025 9:00 AM EDT Infusion [facility] [address] [place] [address] [id number] 08/20/2025 3:00 PM EST Office Visit [facility] [address] [place] [phone] Hvac Sales Engineer: Alessandra Eli documented as of this encounter Visit Diagnoses Not on filedocumented in this encounter Care Teams Mechanical Process Engineer Relationship Specialty Start Date End Date Herrera Arteaga DO [address] [place] [address] PCP - General 09/18/24 documented as of this encounter
--- OUTSIDE RECORDS SUMMARY | 2025-03-12 14:10 | XMS_ITS | Clinical Summary ---
Author Organization [facility] Address [address] [address] Phone Care Team Providers Care Senior Ui Ux Designer Name Role Phone Herrera Arteaga DO Primary Care Provider [phone] Allergies No known active allergies Medications lisinopril (PRINIVIL,ZESTR IL) 10 MG tablet daily. Active methylprednisol one sodium succinate, PF, (SOLU-MEDROL) 125 mg/2 mL SolR prn Active ocrelizumab (OCRELIZUMAB) 30 mg/mL injection Inject 600 mg into the vein every 6 (six) months. Active HYDROcodone-te taminophen (ZOLVIT) 10-300 mg/15 mL solution Take by mouth every 6 (six) hours as needed for pain (specific location in comments). Active yroklol-mvxh-wb col-wpon-tppyhr 100 mg-150 mg- 50 mg-150 mg Cap Take by mouth. Active APPLE CIDER VINEGAR ORAL Take by mouth. Active ginkgo biloba 40 mg Tab Take by mouth. Active ascorbic acid, vitamin C, (VITAMIN C) 250 MG tablet Take 250 mg by mouth daily. Active cholecalciferol (VITAMIN D3) 3,000 unit tablet Take 1,000 Units by mouth daily. Active cyclobenzaprine (FLEXERIL) 10 MG tablet Take 10 mg by mouth 3 (three) times a day as needed. 06/24/2020 Active meloxicam (MOBIC) 15 MG tablet TAKE 1 TABLET BY MOUTH EVERY DAY NEEDED FOR PAIN DO NOT TAKE EVERY DAY [facility] 10/11/2021 Active biotin 1 mg tablet Take 1,000 mcg by mouth 3 (three) times a day. Active methylphenidate HCl (RITALIN) 20 MG tablet Take 20 mg by mouth 2 (two) times a day. Active Active Problems Problem Noted Date Diagnosed Date Varicose veins of bilateral lower extremities with other complications 05/04/2021 Assessment & Plan (11/29/2023 1:42 PM EDT): Given his symptoms and Dr. Richmond want to do a lower extremity venous duplex study which really did not show any significant reflux to his venous system we are going to have him follow-up with Dr. Richmond in 3 months. At this time he does report an improvement to his lower extremity symptoms and is no longer wearing compression stockings. He was strongly encouraged to wear compression stockings between now and the time that he sees Dr. Richmond in 3 months. Patient states that he is agreeable to see Dr. Richmond in 3 months to discuss any intervention if needed in the future. Assessment & Plan (03/27/2023 1:46 PM EDT): This is obviously a big problem for the patient we will investigate with a bilateral vein scan which is a reflux study I will see him thereafter in follow-up Assessment & Plan (05/09/2022 2:53 PM EDT): Symptoms significantly improved following GSV ablation and phlebectomy back in November. We reviewed his LEV (see above), showing 4.8s GSV reflux at midcalf. This is not overly bothersome to him at this point and he would prefer to continue managing this with conservative strategies at this time. Assessment & Plan (11/19/2021 12:15 PM EDT): Follow up ultrasound shows successful L GSV ablation. Patient still has multiple torturous variscosities in his left upper leg which cause him discomfort and edema. He would like to get these taken care of if possible. Reviewed with Dr Hammond, will schedule patient for phlebectomy. A prescription for EMLA cream and his initial follow up LEV have been ordered. 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 The left GSV is also incompetent with greatest reflux 6.2 with reflux at the knee. Based on the opinion of the reader of the ultrasound it was determined that a phlebectomy in addition to RF ablation at the time of treatment or laser laser treatment would be best to treat these vessels on the left. Based on the recommendation per Dr. Richmond, we will start with his left leg for laser ablation in the [place] office with Dr. Richmond. He was given a prescription for compression stockings, EMLA cream and to have an ultrasound completed 1 week post procedure in addition to 3 months follow up ultrasound post procedure. He will need a 2 to 4- week follow-up visit here in the office after his procedure has been completed. Assessment & Plan (05/04/2021 11:48 AM EDT): As mentioned we are going to get a venous reflux study I will see him thereafter in follow-up Obesity 05/04/2021 Assessment & Plan (03/27/2023 1:46 PM EDT): This patient is overweight I will discuss weight loss methods next visit. Assessment & Plan (05/04/2021 11:49 AM EDT): He knows well to lose weight he is morbidly overweight but is very sedentary due to musculoskeletal problem so this is difficult Benign essential hypertension 05/04/2021 Assessment & Plan (03/27/2023 1:47 PM EDT): Perfectly controlled to the guidelines. Assessment & Plan (05/09/2022 2:53 PM EDT): Well controlled on lisinopril. Continue without change. Assessment & Plan (05/04/2021 11:49 AM EDT): Well treated at this time. Reactive airway disease 05/04/2021 Assessment & Plan (05/04/2021 11:49 AM EDT): This is of moderate severity he takes inhalers to control this Immunizations Immunization Administration Dates Next Due Meningococcal MCV4O 04/15/2014 Tdap 03/03/2020,08/01/2019,04/15/2014 Social History Tobacco Use Types Packs/Day Years Used Date Smoking Tobacco: Never Smokeless Tobacco: Never Tobacco Cessation:Counseling Given: Not Answered Alcohol Use Standard Drinks/Week Comments Not Currently 0 (1 standard drink = 0.6 oz pur e alcohol) sometimes on the weekends Education Answer Date Recorded Are you interested in more education? Not on tan e 11/25/2022 Are you concerned about learning? Not on file 11/25/2022 No 11/25/2022 No 11/25/2022 Digital Access Answer Date Recorded No 12/26/2022 No 12/26/2022 Reliable internet access at home? Not on file 12/26/2022 Device with a working camera? Not on file Sex and Gender Information Value Date Recorded Sex Assigned at Male 01/19/2020 8:10 PM EDT Legal Sex Male 9:18 PM EDT Gender Identity Male 05/18/2020 6:24 PM EDT Sexual Orientation Straight 05/18/2020 6: 24 PM EDT Last Filed Vital Signs Vital Sign Reading Time Taken Comments Blood Pressure 118/78 03/27/2023 1:30 PM EDT Pulse 96 03/27/2023 1:30 PM EDT Temperature 36 C (96.8 F) 03/21/2022 9:20 PM EDT Respiratory Rate 18 03/21/2022 9:20 PM EDT Oxygen Saturation 97% 03/27/2023 1:30 PM EDT Inhaled Oxygen Concentration - - Weight 161 kg (355 lb) 03/27/2023 1:30 PM EDT Height 182.9 cm (6') 03/27/2023 1:30 PM EDT Body Mass Index 48.15 03/27/2023 1:30 PM EDT Plan of Treatment Health Maintenance Due Date Last Done Comments LIPID PANEL 1982 DEPRESSION SCREENING 1994 HEPATITIS C SCREENING 2000 HIV ONE-TIME SCREENING (18-6 5 YEARS) 2000 CREATININE LEVEL 03/21/2023 03/21/2022, 07/19/2017 POTASSIUM LEVEL 03/21/2023 03/21/2022, 07/19/2017 BLOOD PRESSURE 09/27/2023 03/27/2023 COVID-19 VACCINE (1 - 2023-2 5 season) 2024 SCREENING FOR DIABETES 03/21/2025 03/21/2022 Adult Td,Tdap Booster 03/03/2030 03/03/2020 , 08/01/2019, 04/15/2014 MENINGOCOCCAL VACCINES (ACWY) Aged Out 04/15/2014 No longer eligible based on patient's age to complete this topic SMOKING STATUS SCREENING (On ce After 26 Yrs) Completed 03/27/2023 HEPATITIS A VACCINES Aged Out No long er eligible based on patient's age to complete this topic HIB VACCINES Aged Out No longer eligi ble based on patient's age to complete this topic MENINGOCOCCAL VACCINES (B) Aged Out N o longer eligible based on patient's age to complete this topic PNEUMOCOCCAL VACCINES (0-49 years) Aged Out No longer eligible b ased on patient's age to complete this topic Medical Devices Not on file Procedures Procedure Name Priority Date/Time Associated Diagnosis Comments BASIC METABOLIC PANEL STAT 03/21/2022 9:51 PM EDT from Last 3 Months or Most Recently Relevant to Health Maintenance Results * (ABNORMAL) Basic metabolic panel (03/21/2022 9:51 PM EDT) SODIUM 140 133 - 146 mmol/L [facility] CHLORIDE 101 96 - 108 mmol/L [facility] POTASSIUM 4.1 3.3 - 5.1 mmol/L [facility] Comment:Specimen slightly he molyzed, result may be falsely elevated. CO2 28 21 - 35 mmol/L [facility] BUN 13 6 - 19 mg/dL [facility] CREATININE 0.50 0.5 - 1.5 mg/dL [facility] GLUCOSE 116(H) 70 - 99 mg/dL [facility] CALCIUM 9.0 8.4 - 10.3 mg/dL [facility] EGFR >120 >59 mL/min/1.7 3m2 [facility] Comment:Estimated glomerular filtration rate calculated using the CKD-EPI refit equation. ANION GAP 15 10 - 20 mmol/L [facility] Blood 03/21/2022 9:51 PM EDT 03/21/2022 10:07 PM EDT us Hererra Suggs DO LAB BLOOD ORDERABLES Final Re sult [facility] [address] [place] [address] from Last 3 Months or Most Recently Relevant to Health Maintenance Insurance MEDICARE PART A & B [facility] ONE CARE MEDICARE REPLACEMENT [place] [place] [id number] MEDICARE PART A & B ONE CARE MEDICARE REPLACEMENT MEDICARE PART A & B MEDICARE PART A & B MEDICARE PART A & B [facility] MEDICARE REPLACEMENT MEDICARE PART A & B MEDICARE PART A & B Member Subscriber Plan / Payer (Ef fective 2016-) Name:Braxton Pierce Member ID:[id number] Relation to Subscriber:Self Name:Braxton Pierce Subscriber ID:[id number] Payer ID:[id number] Group ID:Not on file Type:Medicare Address: [facility] [employer] [facility] [employer] [facility] [address] ONE CARE MEDICARE REPLACEMENT MEDICARE PART A & B CARE MEDICARE REPLACEMENT Member Subscriber Plan / Payer ( fective 2023-) Name:Stan Braxton Relation to Subscriber:Self Name:MarcelaBraxton sepulveda Payer ID:[id number] (NAIC) Group ID:[id number] Type:Medicare [address] [facility] & B [facility] ONE CARE MEDICARE REPLACEMENT Care Teams Senior Ui Ux Designer Relationship Specialty Start Date End Date [facility] [address] [address] PCP - General Family Medicine 10/03/23 Additional Source Comments The information contained in this document represents components of the legal health record. It is not the complete legal health record.[facility]
== END 2025-03-12 14:04 | disposition home or self-care (01) ==
LOC: HO.HOS 13:46
PROVIDERS: PCP Family Medicine; Visit Provider Physician Assistant
DX: M17.0 Bilateral primary osteoarthritis of knee (principal)
CPT/HCPCS: 20610

== ENCOUNTER → 2025-03-12 13:45 | Outpatient (BNVA) | payer OTHER, SELFPAY | PROVIDERS: PCP Family Medicine; Visit Provider Physician Assistant | DX: M17.0 Bilateral primary osteoarthritis of knee (principal) | CPT/HCPCS: 20610; J1010; J2003 ==

== ENCOUNTER 2025-06-18 13:32 | Outpatient (AMB) | payer OTHER, SELFPAY ==
--- OUTSIDE RECORDS SUMMARY | 2025-06-15 23:59 | XMS_ITS | Continuity of Care Document ---
Author Organization [facility] Address [address] [place] [address]- Care Team Providers Care Supervisor Histology Name Role Phone [place] ANDREWS, Hayden Primary Care Physician [phone] Encounter [facility] Date(s): 05/16/25 - 06/15/25 [facility] [address] [place] [address]- Encounter Type: Triage Allergies, Adverse Reactions, Alerts No Known Allergies Immunizations Given and Recorded Vaccine Date Status Refusal Reason tetanus/diphtheria/pertussis, acel(Tdap) 03/03/20 Recorded tetanus/diphtheria/pertussis, acel(Tdap) 08/01/19 Recorded tetanus/diphtheria/pertussis, acel(Tdap) 04/15/14 Recorded Meningococcal Conjugate Vaccine 04/15/14 Recorded Medications acetaminophen-hydrocodone 325 mg-10 mg oral tablet See Instructions, PRN as needed for pain, Take 1-2 tab, by mouth, three times a day, PRN Pain, 28 day supply, AUTO REFILL DNF until 06/20/25 ICD10: M54.9, G35.0, # 168 tablet, 0 Refills, Maintenance,06/13/25 9:50:00 AM EST, Tablet, [id number], Partial fill upon patient request if the prescription is for a schedule II opioid drug. Masspat Checked, Take 1-2 tab, by mouth, three times a day, PRN Pain, 28 day supply, AUTO REFILL DNF until 06/20/25; ICD10: M54.9, G35.0,PRN:as needed for pain, 182, cm, 02/04/25 14:21:00 EDT, Height Start Date: 06/13/25 Status: Ordered Medication Dispense Status: Completed Quantity: 168.0 Unit: tablet Total Allowed Fills: 1 Fills Dispensed: 0 Indications: Dorsalgia, unspecified; Multiple sclerosis; biotin 10 mg oral tablet 1 tablet = 10 mg, By Mouth, Daily, # 30 tablet, 5 Refills, Maintenance, 01/27/20 2:12:00 PM EDT, Tablet, [id number], 182, cm, 05/03/19 11:59:00 EDT, Height, 172.5, kg, 08/09/19 17:05:00 EST, Dry Weight Start Date: 01/27/20 Status: Ordered Medication Dispense Status: Completed Quantity: 30.0 Unit: tablet Total Allowed Fills: 6 Fills Dispensed: 0 Compression Stockings See Instructions, # 1 pack/packet, Refills 1, Tot. Refills 1, Maintenance, surgical, thigh high length 20-30 mm Hg, wear while awake ICD10: I87.2, 01/07/21 2:47:00 PM EDT, Supply Start Date: 01/07/21 Status: Ordered Medication Dispense Status: Completed Quantity: 1.0 Unit: pack/packet Total Allowed Fills: 2 Fills Dispensed: 0 cyclobenzaprine 10 mg oral tablet 1, tablet, By Mouth, 3 times a day, PRN, # 90 tablet, Refills 1, Tot. Refills 1, Maintenance, NEEDED FOR MUSCLE SPASM, 03/26/25 8:49:00 AM EDT, Route to Pharmacy Electronically, [facility] #[id number], 182, cm, 02/04/25 14:21:00 EDT, Height Start Date: 03/26/25 Stop Date: 04/16/25 Status: Ordered Medication Dispense Status: Completed Quantity: 90.0 Unit: tablet Total Allowed Fills: 2 Fills Dispensed: 0 lisinopril 10 mg oral tablet 1, tablet, By Mouth, Daily, # 90 tablet, Refills 1, Tot. Refills 1, Maintenance, 01/08/25 2:53:00 PMEDT, Route to Pharmacy Electronically, [facility] #[id number], 182, cm, 08/08/24 13:45:00 EST,Height Start Date: 01/08/25 Stop Date: 07/07/25 Status: Ordered Medication Dispense Status: Completed Quantity: 90.0 Unit: tablet Total Allowed Fills: 2 Fills Dispensed: 0 meloxicam 15 mg oral tablet 1 tablet, By Mouth, Daily, PRN NEEDED FOR PAIN, NEEDS APPOINTMENT FOR FURTHER REFILLS, # 90 tablet, 0 Refills, Maintenance, 05/12/25 11:13:00 AM EDT, [facility][id number], NEEDS APPOINTMENTFOR FURTHER REFILLS, 182, cm, 02/04/25 14:21:00 EDT, Height Start Date: 05/12/25 Status: Ordered Medication Dispense Status: Completed Quantity: 90.0 Unit: tablet Total Allowed Fills: 1 Fills Dispensed: 0 methylphenidate 20 mg oral tablet 60 each, 0 Refill(s), 0 Refills, 08/08/24 1:18:00 PM EST, Partial fill upon patient request if the prescription is for a schedule II opioid drug. Start Date: 08/08/24 Status: Ordered Medication Dispense Status: Completed Total Allowed Fills: 1 Fills Dispensed: 0 Ocrevus 600 mg, IV Infusion, Every 6 months, Maintenance, every 6 months, 10/07/21 3:40:00 PM EST Start Date: 10/07/21 Status: Ordered Medication Dispense Status: Completed Total Allowed Fills: 1 Fills Dispensed: 0 Vitamin C 0 Refills, Maintenance, 10/18/13 2:00:58 PM EDT Start Date: 10/18/13 Status: Ordered Medication Dispense Status: Completed Total Allowed Fills: 1 Fills Dispensed: 0 Vitamin D3 1000 intl units oral tablet 1 tablet = 1,000 International_Units, By Mouth, Daily, 0 Refills, Maintenance, 10/18/13 2:01:29 PM EDT Start Date: 10/18/13 Status: Ordered Medication Dispense Status: Completed Total Allowed Fills: 1 Fills Dispensed: 0 Problem List Condition Confirmation Course Effective Dates Status Health St atus Informant Chronic back pain Confirmed Active 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 Smoking Status Never (less than 100 in lifetime) entered on: 05/14/20 Sex Sex Representation Male (finding) Patient Care team information Care Team Personnel Name: Ursula Lala RN Position: [facility] RN Member Role: Primary Care Nurse Name: Viviana Alarcon RN Position: [facility] Onco RN Member Role: Primary Care Nurse Name: Ashli Dumont RN Position: [facility] RN Member Role: Primary Care Nurse Name: Hayden Barahona MD Position: [facility] Physician - Primary Care Member Role: PCP Address: [address] [place] [address] Telecom: Name: Jeannette Tamayo RN Position: [facility] AMB Nurse Member Role: Primary Care Nurse Care Team Related Persons Name: ROMÁN PINTO Name: KATELYNN PINTO Name: WALDO RAMIREZ Name: WALDO MARTINEZ Insurance Providers Guarantor name: JESSICA PINTO Health Plan Information #: 1 Payer: [facility] ONE CARE Payer Identifier: NA Member Number: [id number] Group Number: [id number] Subscriber Identifier: NA Relationship to Subscriber: self Coverage Type: Medicare Managed Care (Includes Medicare Advantage Plans) Coverage Verification Date: MARVA Telecom: NA Address:
--- OUTSIDE RECORDS SUMMARY | 2025-06-15 23:59 | XMS_ITS | Continuity of Care Document ---
Author Organization [facility] Address [address] [place] [address]- Care Team Providers Care Roundhouse Worker Name Role Phone [place] ANDREWS, Hayden Primary Care Physician Encounter [facility] [place] Date(s): 05/16/25 - 06/15/25 [facility] [address], [place] [address] Encounter Type: Triage Allergies, Adverse Reactions, Alerts [...] 0 Refills, Maintenance,06/13/25 9:50:00 AM EST, Tablet, [facility] #[id number], Partial fill upon patient request if the [...] 8:49:00 AM EDT, Route to Pharmacy Electronically, [id number], 182, cm, 02/04/25 14:21:00 EDT, Height Start Date: 03/26/25 Stop Date: 04/16/25 Status: Ordered Medication Dispense Status: Completed Quantity: 90.0 Unit: tablet Total Allowed Fills: 2 Fills Dispensed: 0 lisinopril 10 mg oral tablet 1, tablet, By Mouth, Daily, # 90 tablet, Refills 1, Tot. Refills 1, Maintenance, 01/08/25 2:53:00 PMEDT, Route to Pharmacy Electronically, [facility] #[id number], 182, cm, 08/08/24 13:45:00 EST,Height Start Date: 01/08/25 Stop Date: 07/07/25 Status: Ordered Medication Dispense Status: Completed Quantity: 90.0 Unit: tablet Total Allowed Fills: 2 Fills Dispensed: 0 meloxicam 15 mg oral tablet 1 tablet, By Mouth, Daily, PRN NEEDED FOR PAIN, NEEDS APPOINTMENT FOR FURTHER REFILLS, # 90 tablet, 0 Refills, Maintenance, 05/12/25 11:13:00 AM EDT, [facility] #[id number], NEEDS APPOINTMENTFOR FURTHER REFILLS, 182, cm, 02/04/25 [...] Active MS - Multiple sclerosis- followed by [facility] neurology 1 Confirmed Active Neck pain on right side Confirmed Active Bilateral leg pain Confirmed Active Severe obesity Confirmed Active 1followed by [facility] neurology Social History Social History Type Response Sexual Preferred pronoun: H e/him. Smoking Status Never (less than 100 in lifetime) entered on: 05/14/20 Sex Sex Representation Male (finding) Patient Care team information Care Team Personnel Name: Ursula Lala RN Position: [facility] RN Member Role: Primary Care Nurse Name: Viviana Alarcon RN Position: [facility] Onco RN Member Role: Primary Care Nurse Name: Ashli Dumont RN Position: [facility] RN Member Role: Primary Care Nurse Name: Hayden Barahona MD Position: [facility] Physician - Primary Care Member Role: PCP Address: [address] [place] [address] Telecom: Name: Jeannette Tamayo RN Position: [facility] AMB Nurse Member Role: Primary Care Nurse Care Team Related Persons Name: ROMÁN PINTO Name: KATELYNN PINTO Name: WALDO RAMIREZ Name: WALDO MARTINEZ Insurance Providers Guarantor name: JESSICA PINTO Health Plan Information #: 1 Payer: [facility] Payer Identifier: NA Member Number: [id number] Group Number: [id number] Subscriber Identifier: NA Relationship to Subscriber: self Coverage Type: Medicare Managed Care (Includes Medicare Advantage Plans) Coverage Verification Date: MARVA Telecom: NA Address:
--- NOTE | 2025-06-18 13:40 | A.OFFVIS_ITS ---
Vital Signs 06/18/25 13:43 Height 6 ft Weight 360 lb BMI 48.8 Intake Visit Reasons: Inj- B/L knee cortisone injection last 03/12/25 Intake Note: Braxton is a 44 year old male who presents today for an injection in his bilateral knee, cortisone injection. At last visit on 03/12/25 he was given a steroid injection. Patient wishes to repeat cortisone and Durolane injection t kumar. Allergies acetaminophen (From TYLENOL) Allergy (Unknown, Verified 03/12/25 14:00) N/V codeine (CODEINE) Allergy (Unknown, Verified 03/12/25 14:00) NAUSEA VOMITING Codeine Phosphate Allergy (Unknown, Uncoded 03/12/25 14:00) onknown Diclofenac Allergy (Unknown, Uncoded 03/12/25 14:00) rash Codeine Sulfate Adverse Reaction (Unknown, Uncoded 03/12/25 14:00) GI upset Medication List - Last Reconciled 06/18/25 by Stas Roberts PA-C cyclobenzaprine 10 mg PO TID PRN dextroamphetamine-amphetamine 10 mg 1 tab PO DAILY glatiramer mg subcut hydrocodone-acetaminophen 10-325 mg 1 - 2 tabs PO TID PRN lisinopril 10 mg PO DAILY meloxicam 15 mg PO DAILY 30 days HPI HPI Inj- B/L knee cortisone injection last 03/12/25: Details: 44-year-old gentleman returns to the office today for bilateral knee pain. He has just completed his gel series and continues to have some mild discomfort with daily activities. He has had relief with steroid injections in the past and would like to pursue this today. [facility] Social History Alcohol intake: never Current occupational status: unemployed Current occupation: Right Handed Review of Systems Const All systems reviewed & are unremarkable except as noted in HPI and below Physical Exam Vital Signs: BMI result Body Mass Index 48.8 Const General: cooperative and no acute distress Orientation/consciousness: patient oriented x3 Neck Neck: Yes normal visual inspection and Yes no JVD Chest Chest palpation & inspection: normal inspection of the chest Resp Effort & Inspection: normal respiratory effort and able to speak in complete sentences Auscultation: clear to auscultation bilaterally, crackles (no), rales (no), rhonchi (no) and wheezes (no) Cardio Jugular venous distension: no JVD Rate: regular rate Rhythm: regular rhythm Heart sounds: S1 normal heart sound present, S2 normal heart sound present, Murmur heart sound present (no) and Rub heart sound present (no) Peripheral pulses: Peripheral pulses 2+ throughout Neuro General: patient oriented x3 Extrem Other: Bilateral knee: Skin intact, no erythema or joint effusion. Tenderness along the medial and lateral joint line. Full ROM with crepitus. Negative Kim?s. No ligamentous laxity. NVI. General: Yes normal to inspection, Yes no pedal edema and Yes no calf tenderness Psych Appearance: grossly normal Mental Status: mental status grossly normal Speech and movement: Normal speech and movement present Office Procedures AMB Joint Injection/Aspiration Joint Injection/Aspiration Primary Site: Right Knee Secondary Site: Left Knee Prep: site was prepped using aseptic technique, ethochloride spray was applied and injection warnings given Injected: 40 mg of, Decadron, with 3 mL of, 1% plain Lidocaine, 0.25% Bupivacaine and in the joint Approach Used: anterolateral Procedure: The patient tolerated the procedure well and there was some relief with the local anesthesia Coding 98370 - Glenohumeral/Tronchanteric Bursa/Intraarticular Procedure code (CPT) selection complete Assessment & Plan Assessment & Plan (1) Primary osteoarthritis of knees, bilateral: Code(s): M17.0 - Bilateral primary osteoarthritis of knee Category: Medical Plan We discussed options today, which include steroid injection. The patient did consent to move forward with the bilateral knee steroid injection , which was tolerated well. I recommended rest, ice, and elevation and OTC anti- inflammatories as needed for discomfort. If symptoms persist or worsens over the next 6-8 weeks, patient will contact the office, otherwise follow-up as needed. Coding Level of Care Code Est Pt Level 3 (38283) Complex EM visit Add On G2211 Diagnoses Primary osteoarthritis of knees, bilateral M17.0 CPT Codes Coding - Joint 7: 25193 - Glenohumeral/Tronchanteric Bursa/Intraarticular ([id number])
[2025-06-18 13:43] VITALS: BMI 48.8
--- OUTSIDE RECORDS SUMMARY | 2025-06-19 01:34 | XMS_ITS | Encounter Summary ---
Author Organization [facility] Address [address] [place] [address] Care Team Providers Care Sleep Medicine Physician Name Role Phone Herrera Arteaga Primary Care Provider [phone] Encounter Details Date Type Department Care Team (Late st Contact Info) Description 12/23/2020 Orders Only [facility] [address] [place] [address] Devendra Castaneda MD [address] [place] [address] Social History Tobacco Use Types Packs/Day Years [...] Care Team (Late st Contact Info) Description 07/15/2025 1:00 PM EST Evaluation [facility] S4 Neuropsychology [address] [place] [address] Stacker Straightener: BRADEN OLVERA Joan M, PhD [address] [place] [address] 08/20/2025 3:00 PM EST Office Visit [facility] [address] [place] [address] Stacker Straightener: Alessandra Eli 09/27/2025 9:00 AM EST Infusion [facility] [address] [place] [address] documented as of this encounter Visit Diagnoses Not on filedocumented in this encounter Care Teams Sleep Medicine Physician Relationship Specialty Start Date End Date Herrera Arteaga DO [address] [place] [id number] PCP - General 09/18/24 documented as of this encounter
--- OUTSIDE RECORDS SUMMARY | 2025-06-19 01:34 | XMS_ITS | Clinical Summary ---
Author Organization [facility] Address [address] [place] [address] Care Team Providers Care Concrete Fence Builder Name Role Phone ChandlerHerrera carvalho Primary Care Provider [phone] Allergies No known active allergies Medications lisinopriL (PRINIVIL,ZEST RIL) 10 mg tablet 07/16/20 20 Active cyclobenzaprin e (FLEXERIL) 10 mg tablet Take 10 mg by mouth 3 times a day as needed. 06/24/20 20 Active HYDROcodone-ac etaminophen (NORCO) 5-325 mg tablet 07/30/20 20 Active hkmnptd-nfle-s dukj-xage-dfby yl 100 mg-150 mg- 50 mg-150 mg capsule Take by mouth. Acti ve biotin 1 mg tablet Take 1,000 mcg by mouth once a day. Active ascorbic acid, vitamin C, (VITAMIN C) 250 mg tablet Take 250 mg by mouth daily. Active meloxicam (MOBIC) 15 mg tablet Take 15 mg by mouth once a day. 04/30/20 21 Active cholecalcifero l, vitamin D3, (Vitamin D3) 5,000 unit tabletIndicati ons:Multiple sclerosis, relapsing-yared tting,Vitamin D deficiency Take 1 tablet (5,000 Units total) by mouth daily. 30 tablet 11 01/09/20 24 Active magnesium oxide (MAG-OX) 400 mg (241.3 mg mag) tablet Take 1 tablet (241.3 mg of elemental magnesium total) by mouth every night. 60 tablet 3 08/14/19 25 Active Additional Information Patient not taking.Reported on 02/12/2025 LORazepam (ATIVAN) 0.5 mg tablet Take 1-2 tablets (0.5-1 mg total) by mouth See admin instructions. 1-2 by mouth 30 minutes prior to procedure 2 tablet 01/03/20 25 Active cyanocobalamin (VITAMIN B12) 1,000 mcg tablet TAKE 1 TABLET BY MOUTH DAILY 90 tablet 1 03/10/20 25 Active ginkgo biloba 40 mg tablet Take by mouth. Ac tive methylPREDNISo lone sodium succinate (SOLU-Medrol) 125 mg/2 mL recon soln injection prn Active ocrelizumab (Ocrevus) 30 mg/mL injection solution Infuse 600 mg intravenously. Active ocrelizumab (OCREVUS INTRAVENOU) Infuse 600 mg intravenously. 10/08/19 22 Active dextroamphetam ine-amphetamin e (ADDERALL) 20 mg tablet Take 1 tablet (20 mg total) by mouth 2 times a day. 60 tablet 05/28/20 25 Active cholecalcifero l, vitamin D3, (Vitamin D3) 5,000 unit tablet TAKE 1 CAPSULE BY MOUTH EVERY DAY 30 tablet 3 06/11/20 25 Active cholecalcifero l, vitamin D3, 125 mcg (5,000 unit) capsule TAKE 1 CAPSULE BY MOUTH EVERY DAY 30 capsule 3 01/16/20 25 025 Discontinued Active Problems Problem Noted Date Diagnosed Date Attention deficit hyperactiv ity disorder (ADHD), predominantly inattentive type 02/08/2025 Other fatigue 06/08/2021 Numbness and tingling of both legs 11/16/2020 Impaired functional mobility, balance, gait, and endurance 11/16/2020 Muscle spasticity 11/16/2020 Multiple sclerosis, relapsing-remitting 07/21/20 Gait difficulty 07/21/2020 Other chronic pain 07/21/2020 Encounters Date Type Department Care Team Description 06/11/2025 Refill [facility] [address] [place] [id number] Seismometer Operator: Lizzie Muller MD 05/28/2025 Refill [facility] [address] [place] [address] [phone] Seismometer Operator: Berny Arroyo LPN 04/30/2025 Refill [facility] [address] [place] [address] Seismometer Operator: Berny Arroyo LPN 04/01/2025 Refill [facility] [address] [place] [address] Seismometer Operator: Alessandra Eli Telephone Intake, Staff 03/22/2025 9:00 AM EDT Infusion [facility] [address] [place] [address] Janet Christian RN Multiple sclerosis, relapsing-remitting (HCC) (Primary Dx) 03/19/2025 Orders Only [facility] [address] [place] [phone] Seismometer Operator: Mary Carpenter MD from Last 3 Months Social History [...] Sign Reading Time Taken Comments Blood Pressure 109/68 03/22/2025 2:07 PM EDT Pulse 68 03/22/2025 2:07 PM EDT Temperature 37.2 C (99 F) 03/22/2025 2:07 PM EDT Respiratory Rate 18 03/22/2025 2:07 PM EDT Oxygen Saturation 96% 03/22/2025 2:07 PM EDT Inhaled Oxygen Concentration - - Weight 166.5 kg (367 lb 1.1 oz) 03/22/2025 9:01 AM EDT Height 179.6 cm (5' 10.71 ) 09/21/2024 9:[address] Body Mass Index 51.62 09/21/2024 9:04 AM EST Plan of Treatment Upcoming Encounters Date Type Department Care Team (Late st Contact Info) Description 07/15/2025 1:00 PM EST Evaluation [facility] Un[facility] S4 Neuropsychology [address] [place] [address] Seismometer Operator: BRADEN OLVERA Joan M, PhD [address] [place] [address] 08/20/2025 3:00 PM EST Office Visit [facility] [address] [place] [address] Seismometer Operator: Alessandra Eli 09/27/2025 9:00 AM EST Infusion [facility] [address] [place] [address] Health Maintenance Due Date Last Done Comments Varicella Vaccines (1 of 2 - 13+ 2-dose series) 10/24/1995 Hepatitis B Vaccines (1 of 3 - 19+ 3-dose series) 2001 Alcohol/Substance Use Screening 07/31/2024 Depression Screening and Follow-Up 07/31/2024 Social Drivers of Health Annual Screening 07/31/2024 Influenza Vaccine (#1) 2025 COVID-19 Vaccine ( - 2024- season) 2025 Diabetes Screening 02/13/2028 02/12/2025, 0 08/14/2024, 03/21/2022, Additional history exists DTaP,Tdap,and Td Vaccines (4 - Td or Tdap) 03/03/2030 03/03/2020, 08/01/2019, 04/15/2014 HIV Screening Completed 07/21/2020 Hepatitis C Screening Completed 07/21/2020 Pneumococcal Vaccine: Pediatric (0-5 Years) and At-Risk Patients (6-50 Years) Aged Out No longer eligible based on patient's age to complete this topic Procedures * Due to [place] state law, this organization might not be sharing negative HIV tests. Procedure Name Priority Date/Time Associated Diagnosis Comments IGG Routine 03/22/2025 9:16 AM EDT Multiple sclerosis, relapsing-remittin g (HCC) COMPREHENSIVE METABOLIC PANEL Routine 02/12/2025 4:20 PM EDT Multiple sclerosis (HCC) HEPATITIS PANEL, ACUTE Routine 3:57 PM EST Multiple sclerosis from Last 3 Months or Most Recently Relevant to Health Maintenance Results * Due to [place] state law, this organization might not be sharing negative HIV tests. * IgG (03/22/2025 9:16 AM EDT) Pathologist [facility] IgG, Serum 713 600 - 1640 mg/dL 03/24/2025 4:28 PM EDT [facility] Blood Structure of peripheral vein / Unknown Venipuncture / Unknown 03/22/2025 9:16 AM EDT 03/22/2025 9:52 AM EDT Narrative [facility] - 03/24/2025 4:28 PM EDT [facility] Received Date: Mary Tejada MD LAB BLOOD ORDERABLES Final Re sult [facility] [address] [facility] [address], [place] [address], [employer] [facility] [address] [facility] [address], [place] [address], [place] [phone] * (ABNORMAL) Comprehensive Metabolic Panel (02/12/2025 4:20 PM EDT) Pathologist [facility] NA 138 135 - 145 mmol/L 02/12/2025 5:23 PM EDT [facility] K 4.2 3.5 - 5.3 mmol/L 02/12/2025 5:23 PM EDT [facility] Cl 102 98 - 107 mmol/L 02/12/2025 5:23 PM EDT [facility] [employer] [facility] CO2 24 22 - 32 mmol/L 02/12/2025 5:23 PM EDT [facility] Anion Gap 12 5 - 15 02/12/2025 5:23 PM EDT [facility] Glucose 120(H) 65 - 99 mg/dL 02/12/2025 5:23 PM EDT [facility] Creatinine 0.71 0.60 - 1.30 mg/dL 02/12/2025 5:23 PM EDT [facility] Calcium 9.2 8.6 - 10.5 mg/dL 02/12/2025 5:23 PM EDT [facility] Total Protein 7.2 6.0 - 8.0 g/dL 02/12/2025 5:23 PM EDT [facility] Albumin 4.4 3.5 - 5.2 g/dL 02/12/2025 5:23 PM EDT [facility] Bilirubin, Total 0.4 0.2 - 1.2 mg/dL 02/12/2025 5:23 PM EDT [facility] Alkaline Phosphatase 71 35 - 129 U/L 02/12/2025 5:23 PM EDT [facility] AST 24 10 - 40 U/L 02/12/2025 5:23 PM EDT [facility] ALT 29 10 - 40 U/L 02/12/2025 5:23 PM EDT [facility] BUN 18 7 - 23 mg/dL 02/12/2025 5:23 PM EDT [facility] eGFR >90 >=60 mL/min/1. 73m2 02/12/2025 5:23 PM EDT [facility] Comment:The estimated glomer ular [...] in Diagnosing Kidney Disease . Globulin, Total 2.8 2.1 - 4.2 g/dL 02/12/2025 5:23 PM EDT [facility] A/G Ratio 1.6 1.5 - 3.0 02/12/2025 5:23 PM EDT [facility] Blood Structure of peripheral vein / Unknown Venipuncture / Unknown 02/12/2025 4:20 PM EDT 02/12/2025 4:32 PM EDT Mary Tejada MD LAB BLOOD ORDERABLES Final Re sult [facility] [address] [place] [address], * Hepatitis Panel, Acute (07/21/2020 3:57 PM EST) Hepatitis A IgM NON-REACT EDMOND NON-REACT EDMOND 07/22/2020 1:09 AM EST [employer] Hepatitis B Surface Antigen NON-REACT EDMOND NON-REACT EDMOND 07/22/2020 1:09 AM EST [facility] Hepatitis B Core Antibody NON-REACT EDMOND NON-REACT EDMOND 07/22/2020 1:09 AM EST [facility] Hepatitis C Antibody NON-REACT EDMOND NON-REACT EDMOND 07/22/2020 1:09 AM EST [facility] Signal To Cut-Off 0.08 <1.00 07/22/2020 1:09 AM EST [facility] Comment: HCV antibody was non-reactive. There is no laboratory evidence of HCV infection. In most cases, no further action is required. However, if recent HCV exposure is suspected, a test for HCV RNA (test code 90108) is suggested. For additional information please refer to http://[employer]MediaWorks/faq/WVY73u5 (This link is being provided for informational/ educational purposes only.) For additional information, please refer to http://[employer]Works/faq/RUD281 (This link is being provided for informational/ educational purposes only.) Blood Structure of peripheral vein / Unknown Venipuncture / Unknown 07/21/2020 3:57 PM EST 07/21/2020 4:01 PM EST Narrative [facility] - 07/22/2020 1:09 AM EST [facility] Received Date: Mary Tejada MD LAB BLOOD ORDERABLES Final Re sult [facility] [address] [facility] [address], [place] [address], [employer] [facility] [address] [facility] [address], [place] [address], from Last 3 Months or Most Recently Relevant to Health Maintenance Insurance [facility] [place] [id number] Care Teams Concrete Fence Builder Relationship Specialty Start Date End Date Herrera Arteaga DO [facility] [place] [address] PCP - General 09/18/24
--- OUTSIDE RECORDS SUMMARY | 2025-06-19 01:34 | XMS_ITS | Clinical Summary ---
Author Organization [facility] Address [address] [address] Phone Care Team Providers Care Cleaner Signs Name Role Phone Herrera Arteaga DO Primary Care Provider Allergies No known active allergies Medications lisinopril [...] for pain (specific location in comments). Active afgznst-hxrp-vt aqq-idvn-ififbw 100 mg-150 mg- 50 mg-150 mg Cap [...] FOR PAIN DO NOT TAKE EVERY DAY SNF 10/11/2021 Active biotin 1 mg tablet Take [...] left leg for [facility] [place] [facility] with Dr. Richmond. He was given [...] 03/21/2023 03/21/2022, 07/19/2017 BLOOD PRESSURE 09/27/2023 03/27/2023 INFLUENZA VACCINE (#1) 2025 SCREENING FOR DIABETES 03/21/2025 03/21/2022 COVID-19 VACCINE (1 - 2024-2 6 season) 2025 Adult Td,Tdap Booster 03/03/2030 03/03/2020 , 08/01/2019, [...] Date/Time Associated Diagnosis Comments BASIC METABOLIC PANEL (BMP) STAT 03/21/2022 9:51 PM EDT from Last 3 Months or Most Recently Relevant to Health Maintenance Results * (ABNORMAL) Basic metabolic panel (03/21/2022 9:51 PM EDT) SODIUM 140 133 - 146 mmol/L [facility] CHLORIDE 101 96 - 108 mmol/L [facility] POTASSIUM 4.1 3.3 - 5.1 mmol/L [facility] Comment:Specimen slightly he molyzed, result may be falsely elevated. CO2 28 21 - 35 mmol/L [facility] BUN 13 6 - 19 mg/dL [facility] CREATININE 0.50 0.5 - 1.5 mg/dL [facility] GLUCOSE 116(H) 70 - 99 mg/dL [facility] CALCIUM 9.0 8.4 - 10.3 mg/dL [facility] EGFR >120 >59 mL/min/1.7 3m2 [facility] Comment:Estimated glomerular filtration rate calculated using the CKD-EPI refit equation. ANION GAP 15 10 - 20 mmol/L [facility] Blood 03/21/2022 9:51 PM EDT 03/21/2022 10:07 PM EDT us Herrera Suggs DO LAB BLOOD BKR ORDERABLES Saundra jo ann Result [facility] [address] [place] [address] from Last 3 Months or Most Recently Relevant to Health Maintenance Insurance MEDICARE PART A & B [facility] ONE CARE MEDICARE REPLACEMENT [place] [id number] MEDICARE PART A & B [employer] MEDICARE REPLACEMENT P[place]RO [place] [id number] MEDICARE PART A & B MEDICARE PART A & B MEDICARE PART A & B [facility] MEDICARE REPLACEMENT MEDICARE PART A & B MEDICARE PART A & B Member Subscriber Plan / Payer ( fective 2016-Present) Name:Braxton Pierce Member ID:[id number] Relation to Subscriber:Self Name:Braxton Pierce Subscriber ID:[id number] Payer ID:[id number] Group ID:Not on file Type:Medicare Address: [place] [address] ONE CARE MEDICARE REPLACEMENT PEDRO AGUAYO [facility] MEDICARE PART A & B Member Subscriber Plan / Payer ( fective 2016-Present) Name:Braxton Pierce Member ID:[id number] Relation to Subscriber:Self Name:Braxton Pierce Subscriber ID:[id number] Payer ID:[id number] Group ID:Not on file Type:Medicare Address: [place] [address] ONE CARE MEDICARE REPLACEMENT MEDICARE PART A & B [facility] ONE CARE MEDICARE REPLACEMENT Care Teams Cleaner Signs Relationship Specialty Start Date End Date Herrera Arteaga DO [address] [address] PCP - General Family Medicine 10/03/23 Additional Source Comments The information contained in this document represents components of the legal health record. It is not the complete legal health record.[facility]
--- OUTSIDE RECORDS SUMMARY | 2025-06-19 01:34 | XMS_ITS | Encounter Summary ---
Author Organization [facility] Address [address] [address] Phone Care Team Providers Care Ag Service Manager Name Role Phone Suzanne Ulloa MD Primary Care Provider [phone] Herrera Arteaga DO Primary Care Provider [phone] Encounter Details Date Type Department Care Team ([facility] st Contact Info) Description 11/19/2021 Procedure Pass [facility] [address] [place] [address] Social History Tobacco Use Types Packs/Day Years Used Date Smoking Tobacco: Never Smokeless Tobacco: Never Alcohol Use Standard Drinks/Week Comments Not Currently 0 (1 standard drink = 0.6 oz pur e alcohol) sometimes on the weekends Sex and Gender Information Value Date Recorded Sex Assigned at Male 01/19/2020 8:10 PM EDT Legal Sex Male 9:18 PM EDT Gender Identity Male 05/18/2020 6:24 PM EDT Sexual Orientation Straight 05/18/2020 6: 24 PM EDT documented as of this encounter Plan of Treatment Not on file documented as of this encounter Visit Diagnoses Not on filedocumented in this encounter Care Teams Ag Service Manager Relationship Specialty Start Date End Date Suzanne Ulloa MD [address] [place] [address] [email or web address] PCP - General Family Medicine 12/15/20 Herrera Arteaga DO [address] [address] PCP - General Family Medicine 10/03/23 documented as of this encounter Additional Source Comments The information contained in this document represents components of the legal health record. It is not the complete legal health record.[facility]
--- OUTSIDE RECORDS SUMMARY | 2025-06-19 01:34 | XMS_ITS | Encounter Summary ---
Author Organization [facility] Address [address] [place] [address] Care Team Providers Care Beef Cattle Farm Manager Name Role Phone Herrera Arteaga Primary Care Provider [phone] Encounter Details Date Type Department Care Team (Late st Contact Info) Description 09/05/2022 Orders Only [facility] [address] [place] [address] Provider, MD Nasrin [address] [place] [id number] Social History Tobacco Use Types Packs/Day [...] Department Care Team (Late Contact Info) Description 07/15/2025 1:00 PM EST Evaluation [facility] Neuropsychology [address] [place] [address] Icu Specialist: BRADEN OLVERA Joan M, PhD [address] [place] [address] 08/20/2025 3:00 PM EST Office Visit [facility] [address] [place] [address] Icu Specialist: Alessandra Eli 09/27/2025 9:00 AM EST Infusion [facility] [address] [place] [address] documented as of this encounter Procedures * Due to [place] [employer] law, this organization might not be sharing negative HIV tests. Procedure Name Priority Date/Time Associated Diagnosis Comments AMB EXTERNAL MRI BRAIN, OUTS JOHN RESULT Routine 09/05/2022 AMB EXTERNAL MRI C-SPINE, OU TSIDE RESULT Routine 09/05/2022 documented in this encounter Results * Due to [place] [employer] law, this organization might not be sharing negative HIV tests. * MRI Brain, Outside Result (09/05/2022) us Unknown Provider MD MANRIQUEZ EXTERNAL RESULT PROCEDUR ES Final Result * MRI C-Spine, Outside Result (09/05/2022) us Unknown Provider MD MANRIQUEZ EXTERNAL RESULT PROCEDUR ES Final Result documented in this encounter Visit Diagnoses Not on filedocumented in this encounter Care Teams Beef Cattle Farm Manager Relationship Specialty Start Date End Date Herrera Arteaga DO [address] [place] [address] PCP - General 09/18/24 documented as of this encounter
--- OUTSIDE RECORDS SUMMARY | 2025-06-19 01:34 | XMS_ITS | Encounter Summary ---
Author Organization [facility] Address [address] [place] [address] Care Team Providers Care Ssis Developer Name Role Phone Herrera Arteaga DO Primary Care Provider [phone] Encounter Details Date Type Department Care Team (Late st Contact Info) Description 03/14/2024 Orders Only [facility] [address] [place] [address] Mckenna Armando, [facility] Social History Tobacco Use Types Packs/Day Years [...] Info) Description 07/15/2025 1:00 PM EST Evaluation [facility] S[facility] Neuropsychology [address] [place] [id number] Career Development Counselor: BRADEN OLVERA Joan M, PhD [address] [place] [phone] 08/20/2025 3:00 PM EST Office Visit [facility] [address] [place] [address] Career Development Counselor: Alessandra Eli 09/27/2025 9:00 AM EST Infusion [facility] Infusion [facility] [address] [place] [address] documented as of this encounter Visit Diagnoses Not on filedocumented in this encounter Care Teams Ssis Developer Relationship Specialty Start Date End Date Herrera Arteaga DO [address] [place] [address] PCP - General 09/18/24 documented as of this encounter
--- OUTSIDE RECORDS SUMMARY | 2025-06-19 01:34 | XMS_ITS | Encounter Summary ---
Author Organization [facility] Address [address] [place] [address] Care Team Providers Care Beet Flumer Name Role Phone Herrera Arteaga DO Primary Care Provider [phone] Encounter Details Date Type Department Care Team (Late st Contact Info) Description 09/03/2022 myChart Message [facility] Neu[facility] [address] [place] [address] Ac Potts MD [address] [place] [phone] MRI results Social History Tobacco Use Types [...] Info) Description 07/15/2025 1:00 PM EST Evaluation [facility] Un[facility] S[facility] Neuropsychology [address] [place] [address] Director Construction Services: BRADEN OLVERA Joan M, PhD [address] [place] [address] 08/20/2025 3:00 PM EST Office Visit [facility] Sclerosis [facility] [address] [place] [address] Director Construction Services: Alessandra Eli 09/27/2025 9:00 AM EST Infusion [facility] [address] [place] [address] documented as of this encounter Visit Diagnoses Not on filedocumented in this encounter Care Teams Beet Flumer Relationship Specialty Start Date End Date Herrera Arteaga DO [address] [place] [address] PCP - General 09/18/24 documented as of this encounter
== END 2025-06-18 14:22 | disposition home or self-care (01) ==
LOC: HO.HOS 13:33
PROVIDERS: PCP Family Medicine; Visit Provider Physician Assistant
DX: M17.0 Bilateral primary osteoarthritis of knee (principal)
CPT/HCPCS: 20610; 99213

== ENCOUNTER → 2025-06-18 13:32 | Outpatient (BNVA) | payer OTHER, SELFPAY | PROVIDERS: PCP Family Medicine; Visit Provider Physician Assistant | DX: M17.0 Bilateral primary osteoarthritis of knee (principal) | CPT/HCPCS: 20610; 99212; J0665; J1100; J2003 ==